=== PATIENT | male | born 1935 | race Caucasian/White ===

== ENCOUNTER 2022-04-30 08:30 | Outpatient (CLI) | payer MEDICARE, SELFPAY ==
[2022-04-30 14:07] LABS: Albumin* 4.8 g/dL (3.3-5.0)
[2022-04-30 14:08] LABS: Chloride* 102 mmol/L (96-114); Sodium* 140 mmol/L (135-149)
[2022-04-30 14:10] LABS: Aspartate Amino Transferase* 25 U/L (12-35); Bilirubin Total* 0.7 mg/dL (0.1-1.5); Carbon Dioxide* 25 mmol/L (20-32); Cholesterol* 120 mg/dL (90-199); Creatinine* 1.5 mg/dL (0.5-1.5); Estimated Glomerular Filt Rate 46 ml/min; Total Protein* 7.3 g/dL (6.0-8.3)
[2022-04-30 14:11] LABS: Alanine Aminotransferase* 19 U/L (4-50); Alkaline Phosphatase* 108 U/L (40-150); Blood Urea Nitrogen* 27 mg/dL (7-30); Calcium* 9.4 mg/dL (8.4-10.6); Glucose* 86 mg/dL (60-115); HDL Cholesterol* 35 mg/dL (>=40); LDL Cholesterol Calculated 64 mg/dL (<100); Triglycerides* 107 mg/dL (40-149)
[2022-04-30 14:26] LABS: Creatinine Urine 58.4 mg/dL
[2022-04-30 14:30] LABS: Microalbumin Creatinine Ratio 220 mg/g (0-30); Microalbumin Urine 13 mg/dL
[2022-04-30 14:46] LABS: Vitamin B12* 466 pg/mL (243-894)
== END 2022-04-30 08:31 | disposition home or self-care (01) ==
PROVIDERS: PCP Family Medicine; Visit Provider Family Medicine
DX: E11.9 Type 2 diabetes mellitus without complications (principal); E78.5 Hyperlipidemia, unspecified; I10 Essential (primary) hypertension; I25.10 Atherosclerotic heart disease of native coronary artery without angina pectoris
CPT/HCPCS: 80053; 80061; 82043; 82570; 82607

== ENCOUNTER 2022-11-30 08:51 | Outpatient (CLI) | payer MEDICARE, SELFPAY | END 2022-11-30 08:52 | disposition home or self-care (01) | PROVIDERS: PCP Family Medicine; Visit Provider Family Medicine | DX: N18.1 Chronic kidney disease, stage 1 (principal); D64.9 Anemia, unspecified; E11.9 Type 2 diabetes mellitus without complications; E78.5 Hyperlipidemia, unspecified; I10 Essential (primary) hypertension | CPT/HCPCS: 80053; 80061; 82043; 82306; 82310; 82570; 82607; 82728; 83540; 83550; 83970; 84550; 87086; 87186 ==

== ENCOUNTER 2023-07-06 20:00 | Outpatient (CLI) | payer MEDICARE, SELFPAY | END 2023-07-06 20:01 | disposition home or self-care (01) | LOC: AMB 07-09 16:11 | PROVIDERS: PCP Family Medicine; Visit Provider Emergency Medicine | DX: E11.65 Type 2 diabetes mellitus with hyperglycemia (principal); R11.2 Nausea with vomiting, unspecified | CPT/HCPCS: A0425; A0427 ==

== ENCOUNTER 2023-07-06 20:44 | Emergency (ER) | payer MEDICARE, SELFPAY ==
[2023-07-06] VITALS (18 sets, daily range): BP systolic 114–150; BP diastolic 59–73; PULSE 76–99; RESP 18; TEMP 37; O2SAT 97–100; BMI 21.8
[2023-07-06] MEDS: 0.9 % SODIUM CHLORIDE 1000 ml 1,000 ML IV (21:05)
[2023-07-06 21:19] LABS: HCO3 VBG 23 mmol/L (21-28); Lactate* 1.2 mmol/L (0.5-1.9); PCO2 VBG 37 mmHG (40-50); PO2 VBG 37.8 mmHG (25-47); pH VBG 7.403 (7.32-7.43)
[2023-07-06 21:22] LABS: Basophils Absolute Auto 0.01 K/uL (0.00-0.30); Basophils Percent Auto 0.1 % (0.0-3.0); Eosinophils Absolute Auto 0.01 K/uL (0.00-0.50); Eosinophils Percent Auto 0.1 % (0.0-7.0); Hematocrit 32.2 % (37.0-53.0); Hemoglobin* 11.3 gm/dL (13.5-17.5); Immature Granulocytes Abs Auto 0.02 K/uL (0.00-0.30); Immature Granulocytes Pct Auto 0.2 %; Lymphocytes Percent Auto 4.3 % (20-44); Mean Corpuscular HGB Conc 35 gm/dL (32-36); Mean Corpuscular Hemoglobin 30 pg (26-34); Mean Corpuscular Volume 86 fL (80-100); Monocytes Percent Auto 12.8 % (0.0-11.0); Neutrophils Percent Auto 82.5 % (42.0-72.0); Platelet Count* 164 K/uL (140-440); RDW Coefficient of Variation % 11.4 % (11.5-15.5); Red Blood Count 3.74 m/uL (4.30-5.90); White Blood Count* 8.22 K/uL (4.50-11.00)
[2023-07-06 21:28] LABS: Slide Review Reflex No
[2023-07-06 21:33] LABS: Chloride* 101 mmol/L (96-114); Sodium* 133 mmol/L (135-149)
[2023-07-06 21:36] LABS: Anion Gap 10 mEq/L (7-15); Blood Urea Nitrogen* 40 mg/dL (7-30); Carbon Dioxide* 22 mmol/L (20-32); Creatinine* 1.5 mg/dL (0.5-1.5); Est. Creatinine Clearance* 34.47; Estimated Glomerular Filt Rate 45 ml/min
[2023-07-06 21:37] LABS: Glucose* 290 mg/dL (60-115)
[2023-07-06 21:57] LABS: Appearance Urine Clear (Clear); Bilirubin Urine Negative (Negative); Blood Urine Trace-lysed (Negative); Color Urine Yellow (Yellow); Glucose Urine 2+ (Negative); Ketones Urine Negative (Negative); Leukocyte Esterase Urine Negative (Negative); Nitrite Urine Negative (Negative); Protein Urine 2+ (Negative); Specific Gravity Urine 1.015 (1.000-1.030); Urobilinogen Urine 0.2 (0.2-1.0); pH Urine 5.5 (5.0-8.5)
[2023-07-06 22:05] LABS: RBC Urine 0-2 (0-2); Squamous Epithelial Cell Urine Few (None-Few)
[2023-07-06 22:13] LABS: Glucose, Point-of-Care* 214 mg/dl (60-115)
--- NOTE | 2023-07-06 22:57 | ED.NURSE ---
pt given water and crackers per MD order.
[2023-07-07] VITALS: PULSE 75; O2SAT 98
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
--- NOTE | 2023-07-07 12:32 | ED.NURSE ---
Pt's daughter called x3 regarding missing watch from Pt. Daughter called to notify staff Pt's watch was found in pant pocket.
== END 2023-07-07 00:05 | disposition home or self-care (01) ==
PROVIDERS: Emergency Provider Emergency Medicine; PCP Family Medicine
DX: E11.65 Type 2 diabetes mellitus with hyperglycemia (principal)
CPT/HCPCS: 36415; 80048; 81001; 82010; 82803; 82947; 82962; 83605; 85025; 93005; 96360; 96361; 99283; 99284; J7030

== ENCOUNTER 2023-08-02 19:04 | Inpatient (IN) | payer MEDICARE, SELFPAY ==
[2023-08-02] VITALS (22 sets, daily range): BP systolic 123–151; BP diastolic 59–71; PULSE 87–117; RESP 20; TEMP 36.8–37.8; O2SAT 95–100; BMI 22.4; BMI 19.5
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
--- NOTE | 2023-08-02 19:24 | CRLHL7_ITS ---
For Patients: As a result of the Cures Act, medical imaging exams and procedure reports are released immediately into your electronic medical record. You may view this report before your referring provider. If you have questions, please contact your health care provider. INDICATION: Fever, feels unwell TECHNIQUE: Chest 1 view. Permanently recorded images are archived. COMPARISON: None. FINDINGS: Cardiovascular and mediastinum: Heart size and vasculature are normal in caliber and appearance. Lungs and pleural spaces: The lungs are clear. No pleural effusion or pneumothorax. Bones and soft tissues: Unremarkable for age. IMPRESSION: No evidence of an acute pulmonary process. Dictated by Carson Stewart MD @ 08/02/2023 9:05:14 PM (Electronically Signed)
[2023-08-02] MEDS: 0.9 % SODIUM CHLORIDE 500 ML 500 ML IV (20:00)
--- NOTE | 2023-08-02 20:00 | ED.NURSE ---
magazine writer flushed pt EMS IV while getting the pt settled from EMS. magazine writer then started to administer order IV fluids. once fluids started, before magazine writer exited the room pt mentioned that the IV felt weird. daughter check pt arm before magazine writer to get there and noticed some swelling. upon investigation the EMS IV had infiltrated. magazine writer removed EMS IV and wrapped sight with Coban.
[2023-08-02 20:04] LABS: HCO3 VBG 24 mmol/L (21-28); Lactate* 1.8 mmol/L (0.5-1.9); PCO2 VBG 38 mmHG (40-50); PO2 VBG 30.9 mmHG (25-47); pH VBG 7.406 (7.32-7.43)
[2023-08-02 20:20] LABS: Chloride* 99 mmol/L (96-114)
[2023-08-02 20:21] LABS: Potassium* 4.4 mmol/L (3.6-5.1); Sodium* 131 mmol/L (135-149)
[2023-08-02 20:23] LABS: Basophils Percent Auto 0.1 % (0.0-3.0); Creatinine* 1.5 mg/dL (0.5-1.5); Eosinophils Percent Auto 0.1 % (0.0-7.0); Est. Creatinine Clearance* 34.47; Estimated Glomerular Filt Rate 45 ml/min; Hematocrit 21.1 % (37.0-53.0); Immature Granulocytes Pct Auto 0.4 %; Lymphocytes Percent Auto 3.3 % (20-44); Mean Corpuscular HGB Conc 34 gm/dL (32-36); Mean Corpuscular Hemoglobin 30 pg (26-34); Mean Corpuscular Volume 88 fL (80-100); Monocytes Percent Auto 7.3 % (0.0-11.0); Neutrophils Percent Auto 88.8 % (42.0-72.0); Platelet Count* 332 K/uL (140-440); RDW Coefficient of Variation % 11.7 % (11.5-15.5); Red Blood Count 2.41 m/uL (4.30-5.90); White Blood Count* 17.23 K/uL (4.50-11.00)
[2023-08-02 20:24] LABS: Alanine Aminotransferase* 100 U/L (4-50); Alkaline Phosphatase* 140 U/L (40-150); Anion Gap 12 mEq/L (7-15); Aspartate Amino Transferase* 63 U/L (12-35); Bilirubin Total* 0.7 mg/dL (0.1-1.5); Blood Urea Nitrogen* 51 mg/dL (7-30); Calcium* 9.2 mg/dL (8.4-10.6); Carbon Dioxide* 20 mmol/L (20-32); Glucose* 330 mg/dL (60-115); Total Protein* 7.3 g/dL (6.0-8.3)
[2023-08-02 20:25] LABS: Hemoglobin* 7.1 gm/dL (13.5-17.5); Slide Review Reflex No
--- NOTE | 2023-08-02 20:31 | CRLHL7_ITS ---
For Patients: As a result of the 21st Century Cures Act, medical imaging exams and procedure reports are released immediately into your electronic medical record. You may view this report before your referring provider. If you have questions, please contact your health care provider. INDICATION: New anemia, fever, ill. TECHNIQUE: CT chest, abdomen, and pelvis acquired with 75 cc Isovue 370 IV contrast. COMPARISON: None. FINDINGS: CHEST: Lungs and pleura: Lungs and pleural spaces are clear. No suspicious nodules, infiltrates, or effusions. Cardiovascular structures: Heart size is normal. Thoracic aorta and main pulmonary artery are normal in caliber. Coronary artery calcifications. Mediastinum and sonny: No mass or adenopathy. Chest wall and axilla: No mass or adenopathy. Bones: Degenerative changes. ABDOMEN AND PELVIS: Liver: Normal in size and attenuation. Subcentimeter hypodense focus in the right hepatic lobe is too small to accurately characterize. Gallbladder and bile ducts: Mildly prominent bile ducts, likely secondary to post cholecystectomy state. Trace pneumobilia. Spleen: Unremarkable. Adrenal glands: Unremarkable. Pancreas: Atrophy of the pancreas. 1.5 cm low density lesion in the pancreatic neck appears contiguous with the pancreatic duct, may represent a side branch IPMN. Kidneys: Left renal scarring. 1.7 cm indeterminate lesion in the left lower pole (series 2, image 155). No hydronephrosis. GI tract: Small hiatal hernia. Moderate to large colonic stool load. No evidence of obstruction. Lymph nodes: Unremarkable. Vascular structures: Scattered atherosclerotic calcifications. Miscellaneous: Unremarkable. No free air or significant free fluid. Pelvic organs: Severe prostatomegaly. Urinary bladder diverticula. Bones: Degenerative changes. IMPRESSION: 1. No acute abnormality of the chest, abdomen, or pelvis. 2. 1.7 cm left renal lower pole indeterminate lesion. Consider further characterization with MRI abdomen (renal mass protocol). 3. 1.5 cm low density lesion in the pancreatic neck appears contiguous with the pancreatic duct, may represent a side branch IPMN. This could be confirmed with MRCP if clinically warranted. 4. Severe prostatomegaly. Please note that all CT scans at this facility use dose modulation, iterative reconstruction, and/or weight-based dosing when appropriate to reduce radiation dose to as low as reasonably achievable. Dictated by Juanito Morales MD @ 08/02/2023 11:08:11 PM (Electronically Signed)
[2023-08-02 20:46] LABS: C Reactive Protein* 15.1 mg/dL (0.5-1.0)
[2023-08-02 21:00] LABS: PCR FLU A Negative PCR FLU A (Negative); PCR FLU B Negative PCR FLU B (Negative); PCR RSV Negative PCR RSV (Negative); SARS PCR* Negative SARS-CoV-2 (Negative)
[2023-08-02 21:26] LABS: Erythrocyte SedimentationRate* > 140 mm/hr (2-15)
[2023-08-02 21:36] LABS: Fecal Occult Blood* Negative (Negative)
[2023-08-02] MEDS: PANTOPRAZOLE SODIUM 40 MG INJ IVP (21:52)
[2023-08-02 21:56] LABS: Reticulocyte Percent 0.7 % (0.5-2.0); Reticulocytes Absolute 0.02 # (0.03-0.08)
[2023-08-02 21:58] LABS: Troponin I* 0.01 ng/mL (0.01-0.04)
[2023-08-02 22:02] LABS: Procalcitonin* 1.19 ng/mL (<0.50)
[2023-08-02 22:04] LABS: Iron* 30 ug/dL (49-181)
[2023-08-02 22:13] LABS: Percent Iron Saturation 10 % (20-50); Total Iron Binding Capacity 318 ug/dL (261-462)
[2023-08-02 22:16] LABS: Appearance Urine Clear (Clear); Bilirubin Urine Negative (Negative); Blood Urine Trace-intact (Negative); Color Urine Yellow (Yellow); Glucose Urine 2+ (Negative); Ketones Urine Negative (Negative); Leukocyte Esterase Urine Trace (Negative); Nitrite Urine Negative (Negative); Protein Urine 2+ (Negative); Specific Gravity Urine 1.015 (1.000-1.030); Urobilinogen Urine 0.2 (0.2-1.0); pH Urine 5.5 (5.0-8.5)
[2023-08-02 22:41] LABS: Ferritin* > 1000.0 ng/mL (17.9-464.0)
--- NOTE | 2023-08-02 23:08 | ED.NURSE ---
nurse to nurse report given to M/S
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
[2023-08-02 23:44] LABS: Lactate Dehydrogenase* 318 U/L (120-246)
[2023-08-03] VITALS (13 sets, daily range): BP systolic 100–125; BP diastolic 48–69; PULSE 76–92; RESP 16–18; TEMP 36.6–37.2; O2SAT 96–99; BMI 19.5
[2023-08-03] MEDS: levoFLOXacin 750 MG TABLET PO (00:35)
--- NOTE | 2023-08-03 06:24 | PC.NURSE ---
End of shift [id number]: Patient admitted to the unit at 2320 with anemia and uncontrolled blood sugars. Alert and oriented x 4, patient does show signs of confusion during conversation, has difficulty with recall and remembering what days he started feeling unwell and was unable to verbalize his insulin dosage that was recently changed. He does state he checks his blood glucose after the last meal of each day and doses his insulin depending on what the reading is, if blood glucose >500 he states he gives 5 units to himself of the new insulin and if its below 300 he gives himself 3 units. Denies any shortness of breath or chest pain, blood pressures stable. Denies any bloody stools or known active bleeding. Patient required 1 unit PBRC's, transfursion started at 0441, denies any symptoms of transfusion reaction. Continent of bladder and bowel. Ambulates with SBA.
[2023-08-03 08:46] LABS: Ionized Calcium* 1.16 mmol/L (1.11-1.30)
[2023-08-03 08:54] LABS: Basophils Percent Auto 0.1 % (0.0-3.0); Eosinophils Percent Auto 0.2 % (0.0-7.0); Hemoglobin* 9.8 gm/dL (13.5-17.5); Immature Granulocytes Pct Auto 0.3 %; Lymphocytes Percent Auto 4.9 % (20-44); Mean Corpuscular HGB Conc 34 gm/dL (32-36); Mean Corpuscular Hemoglobin 29 pg (26-34); Mean Corpuscular Volume 87 fL (80-100); Monocytes Percent Auto 7.8 % (0.0-11.0); Neutrophils Percent Auto 86.7 % (42.0-72.0); Platelet Count* 262 K/uL (140-440); RDW Coefficient of Variation % 11.7 % (11.5-15.5); Red Blood Count 3.35 m/uL (4.30-5.90); White Blood Count* 11.13 K/uL (4.50-11.00)
[2023-08-03 08:58] LABS: Slide Review Reflex No
[2023-08-03] MEDS: OMEPRAZOLE 20 MG CAPSULE DR PO ×2 (09:07→21:15)
[2023-08-03] MEDS: AMLODIPINE 10 MG TABLET PO (09:07)
[2023-08-03] MEDS: SODIUM CHLORIDE 0.9 % (FLUSH) 10 ML SYRINGE 5 ML IVF ×2 (09:08→21:15)
[2023-08-03 09:11] LABS: Chloride* 105 mmol/L (96-114); Sodium* 136 mmol/L (135-149)
[2023-08-03 09:12] LABS: Albumin* 3.5 g/dL (3.3-5.0); Chloride* 105 mmol/L (96-114)
[2023-08-03 09:13] LABS: Potassium* 3.9 mmol/L (3.6-5.1); Sodium* 136 mmol/L (135-149)
[2023-08-03 09:14] LABS: Anion Gap 12 mEq/L (7-15); Blood Urea Nitrogen* 42 mg/dL (7-30); Carbon Dioxide* 19 mmol/L (20-32); Creatinine* 1.4 mg/dL (0.5-1.5); Est. Creatinine Clearance* 33.95; Estimated Glomerular Filt Rate 49 ml/min
[2023-08-03 09:15] LABS: Creatinine* 1.4 mg/dL (0.5-1.5); Est. Creatinine Clearance* 33.95; Estimated Glomerular Filt Rate 49 ml/min; Glucose* 137 mg/dL (60-115)
[2023-08-03 09:16] LABS: Alanine Aminotransferase* 102 U/L (4-50); Alkaline Phosphatase* 123 U/L (40-150); Anion Gap 13 mEq/L (7-15); Aspartate Amino Transferase* 76 U/L (12-35); Bilirubin Direct* 0.2 mg/dL (0.0-0.5); Bilirubin Total* 0.7 mg/dL (0.1-1.5); Blood Urea Nitrogen* 42 mg/dL (7-30); Carbon Dioxide* 18 mmol/L (20-32); Gamma Glutamyl Transpeptidase* 74 U/L (8-55); Glucose* 137 mg/dL (60-115); Lipase* 40 U/L (23-300); Phosphorus* 3.6 mg/dL (2.5-4.5); Total Protein* 6.7 g/dL (6.0-8.3)
[2023-08-03 09:17] LABS: Calcium* 8.9 mg/dL (8.4-10.6)
[2023-08-03 09:27] LABS: Troponin I* 0.02 ng/mL (0.01-0.04)
[2023-08-03 09:28] LABS: INR 1.19 (0.91-1.10); Prothrombin Time 15.9 Seconds
[2023-08-03 09:32] LABS: NT Pro B Type NatriureticPept* 785 pg/mL; Procalcitonin* 1.22 ng/mL (<0.50)
[2023-08-03 09:33] LABS: C Reactive Protein* 16.1 mg/dL (0.5-1.0)
[2023-08-03 09:38] LABS: Hemoglobin A1C* 10.6 % (0-5.6)
--- NOTE | 2023-08-03 10:51 | P.ANES_ITS ---
Anesthesia Charges Start Date/Time Anesthesia Start Date: 08/03/23 Anesthesia Start Time: 10:34 Stop Date/Time Anesthesia Stop Date: 08/03/23 Anesthesia Stop Time: 10:48 Summary Extremes of Age - Over 70 or under 1: RIGHT OF [address] BUYER
--- NOTE | 2023-08-03 12:14 | PM.IMPN1 ---
Progress Note: A&P Assessment and plan (1) Prostatitis: Problem details: severe sepsis noted. on zosyn from 08/03 forward (08/02 was vanc and levofloxacin) Status: Acute (2) Iron deficiency anemia: Problem details: - Acute anemia. significant drop in 3-4 weeks (11.3 on 07/06/23 --> 7.1 on admission) -responded nicely to 1 unit packed cells: 9.8 -stool neg for blood -EGD negative -iron stores low (elevated BUN >40 since 07/06/23) -elevated ferritin from baseline of 534 (mild elevation) in 12/18. acute phase reactant? -mild bump on LDH but no obvious hemolysis -sepsis causing? slow GI bleed? Status: Acute (3) Sepsis: Problem details: seeing sepsis - sepsis with 3 SIRS criteria: HR, WBC count, RR and infection (prostatitis with gram neg bacteremia); organ dysfunction is present with BP of 100/48 (MAP 65) Status: Acute (4) Fever: Problem details: -Marked prostatomegaly on CT. -PSA >12 -gram neg rods in blood culture -elevated procalcitonin and CRP -d/c levofloxacin, vanc - zosyn renally dosed as of noon on 08/03 Status: Acute (5) Diabetes mellitus, type II: Problem details: -insulin dependent (lantus 22-28 units and meal time insulin) -blood sugars: 89 (today at 12 noon), 139, 282, 273 ... 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 may do MRI as inpatient if needed (not needed currently) vs outpatient vs no f/u if based on care goals Status: Acute Subjective Date Seen: 08/03/23 Interval history: Daily Progress Note - Hospital Medicine #: 2 CC: OVERNIGHT UPDATES FROM STAFF & MED, LAB, IMAGING UPDATES Objective: Vitals: see above Lungs: Clear. Cardiac: S1S2. Disposition/Potential discharge - Likely to return to previous living situation. Today I spent 50minutes seeing the patient, reviewing Expanse and EPIC notes/diagnostics, discussing the care plan with our care time that includes social work, PT/OT, pharmacy, RT, residential and documenting my impressions and plan in the medical record. Exam Const: Vital Signs, click to edit/add: Vital Signs - 24 hr 08/02/23 19:06 08/02/23 19:23 08/02/23 19:30 Temperature 100.0 F H Pulse Rate 106 H 104 H Pulse Rate [Pulse Oximeter] 107 H Pulse Rate [Right Pulse Oximeter] Respiratory Rate 20 Blood Pressure Blood Pressure [Le ft Arm] Blood Pressure [Ri ght Upper Arm] 151/70 H Pulse Oximetry 100 99 99 Oxygen Delivery Me thod Room Air 08/02/23 19:32 08/02/23 19:45 08/02/23 20:00 Temperature Pulse Rate 106 H 102 H 96 Pulse Rate [Pulse Oximeter] Pulse Rate [Right Pulse Oximeter] Respiratory Rate Blood Pressure 133/71 Blood Pressure [Le ft Arm] Blood Pressure [Ri ght Upper Arm] Pulse Oximetry 98 98 98 Oxygen Delivery Me thod 08/02/23 20:02 08/02/23 20:03 08/02/23 20:18 Temperature Pulse Rate 92 97 99 Pulse Rate [Pulse Oximeter] Pulse Rate [Right Pulse Oximeter] Respiratory Rate Blood Pressure 123/59 L Blood Pressure [Le ft Arm] Blood Pressure [Ri ght Upper Arm] Pulse Oximetry 98 99 99 Oxygen Delivery Me thod 08/02/23 20:30 08/02/23 20:32 08/02/23 20:49 Temperature Pulse Rate 97 87 97 Pulse Rate [Pulse Oximeter] Pulse Rate [Right Pulse Oximeter] Respiratory Rate Blood Pressure 127/64 Blood Pressure [Le ft Arm] Blood Pressure [Ri ght Upper Arm] Pulse Oximetry 98 99 97 Oxygen Delivery Me thod 08/02/23 21:00 08/02/23 21:58 08/02/23 22:00 Temperature Pulse Rate 101 H 107 H 106 H Pulse Rate [Pulse Oximeter] Pulse Rate [Right Pulse Oximeter] Respiratory Rate Blood Pressure Blood Pressure [Le ft Arm] Blood Pressure [Ri ght Upper Arm] Pulse Oximetry 98 97 98 Oxygen Delivery Me thod 08/02/23 22:05 08/02/23 22:15 08/02/23 22:30 Temperature Pulse Rate 102 H 98 98 Pulse Rate [Pulse Oximeter] Pulse Rate [Right Pulse Oximeter] Respiratory Rate Blood Pressure Blood Pressure [Le ft Arm] Blood Pressure [Ri ght Upper Arm] Pulse Oximetry 97 96 96 Oxygen Delivery Me thod 08/02/23 22:34 08/02/23 22:45 08/02/23 23:00 Temperature Pulse Rate 99 95 106 H Pulse Rate [Pulse Oximeter] Pulse Rate [Right Pulse Oximeter] Respiratory Rate Blood Pressure Blood Pressure [Le ft Arm] Blood Pressure [Ri ght Upper Arm] Pulse Oximetry 97 97 97 Oxygen Delivery Me thod 08/02/23 23:20 08/02/23 23:20 08/03/23 03:00 Temperature 98.3 F 98.8 F Pulse Rate Pulse Rate [Pulse Oximeter] Pulse Rate [Right Pulse Oximeter] 117 H 79 Respiratory Rate 20 20 18 Blood Pressure Blood Pressure [Le ft Arm] 135/65 105/62 Blood Pressure [Ri ght Upper Arm] Pulse Oximetry 95 98 97 [facility] Room [facility] Room Air 08/03/23 04:41 08/03/23 04:55 08/03/23 04:57 Temperature 98.8 F 98.9 F 98.3 F Pulse Rate 79 81 86 Pulse Rate [Pulse Oximeter] Pulse Rate [Right Pulse Oximeter] Respiratory Rate 18 16 16 Blood Pressure 105/62 110/59 L 104/58 L Blood Pressure [Le ft Arm] Blood Pressure [Ri ght Upper Arm] Pulse Oximetry 97 97 97 Oxygen Delivery Ny thod 08/03/23 05:42 08/03/23 07:10 08/03/23 07:15 Temperature 98.6 F 98.3 F 98.3 F Pulse Rate 85 80 Pulse Rate [Pulse Oximeter] Pulse Rate [Right Pulse Oximeter] 80 Respiratory Rate 16 16 16 Blood Pressure 115/61 105/56 L Blood Pressure [Le ft Arm] 105/62 Blood Pressure [Ri ght Upper Arm] Pulse Oximetry 97 97 97 Oxygen Delivery Me od Room Air 08/03/23 08:00 08/03/23 09:58 08/03/23 11:35 Temperature 98.0 F Pulse Rate 86 Pulse Rate [Pulse Oximeter] Pulse Rate [Right Pulse Oximeter] 80 76 Respiratory Rate 16 16 Blood Pressure Blood Pressure [Le ft Arm] 100/48 L Blood Pressure [Ri ght Upper Arm] Pulse Oximetry 99 [facility] Labs Labs: Laboratory Results - last 24 hr 08/02/23 08/02/23 08/02/23 19:52 20:17 20:30 WBC 17.23 H RBC 2.41 L Hgb 7.1 L* Hct 21.1 L MCV 88 MCH 30 MCHC 34 RDW Coeff of Sy 11.7 Plt Count 332 Neut % (Auto) 88.8 H Lymph % (Auto) 3.3 L [place] % (Auto) 7.3 Eos % (Auto) 0.1 Baso % (Auto) 0.1 Neut # (Auto) 15.30 H Lymph # (Auto) 0.60 L [place] # (Auto) 1.30 H Eos # (Auto) 0.00 Baso # (Auto) 0.00 Abs Immat Gran (auto) 0.10 Imm/Tot Granulo (auto) 0.4 ESR > 140 H Absolute Retic 0.02 L Percent Retic 0.7 Immature Retic Fraction 7.0 Retic Hgb Equivalent 25.0 L INR VBG pH 7.406 VBG pCO2 38 L VBG pO2 30.9 VBG HCO3 24 Sodium 131 L Potassium 4.4 Chloride 99 Carbon Dioxide 20 Anion Gap 12 BUN 51 H Creatinine 1.5 Estimated Creat Clear 34.47 Estimated GFR 45 Glucose 330 H Hemoglobin A1c 10.6 H Lactate 1.8 Calcium 9.2 Ionized Calcium Ian Phosphorus Iron 30 L TIBC 318 % Saturation 10 L Ferritin > 1000.0 H Total Bilirubin 0.7 Direct Bilirubin GGT AST 63 H ALT 100 H Alkaline Phosphatase 140 Lactate Dehydrogenase 318 H Troponin I 0.01 C-Reactive Protein 15.1 H NT-Pro-B Natriuret Pep Total Protein 7.3 Albumin 4.0 Lipase PSA Screen 12.10 H Procalcitonin 1.19 H TSH Urine Color Urine Appearance Urine pH Ur Specific [place] Urine Protein Urine Glucose (UA) Urine Ketones Urine Blood Urine Nitrite Urine Bilirubin Urine Urobilinogen Ur Leukocyte Esterase Urine RBC Urine WBC Ur Squamous Epith Cells Urine Bacteria Stool Occult Blood SARS-CoV-2 (PCR) Negative SARS-CoV-2 Influenza Type A (PCR) Negative PCR FLU A Influenza Type B (PCR) Negative PCR FLU B RSV (PCR) Negative PCR RSV Lab Acknowledgement Test Added Blood Type Antibody Screen Crossmatch ([facility]) 08/02/23 08/02/23 08/02/23 20:49 21:21 21:46 WBC RBC Hgb Hct MCV MCH MCHC RDW Coeff of Sy Plt Count Neut % (Auto) Lymph % (Auto) [place] % (Auto) Eos % (Auto) Baso % (Auto) Neut # (Auto) Lymph # (Auto) [place] # (Auto) Eos # (Auto) Baso # (Auto) Abs Immat Gran (auto) Imm/Tot Granulo (auto) ESR Absolute Retic Percent Retic Immature Retic Fraction Retic Hgb Equivalent INR VBG pH VBG pCO2 VBG pO2 VBG HCO3 Sodium Potassium Chloride Carbon Dioxide Anion Gap BUN Creatinine Estimated Creat Clear Estimated GFR Glucose Hemoglobin A1c Lactate Calcium Ionized Calcium Ian Phosphorus Iron TIBC % Saturation Ferritin Total Bilirubin Direct Bilirubin GGT AST ALT Alkaline Phosphatase Lactate Dehydrogenase Troponin I C-Reactive Protein NT-Pro-B Natriuret Pep Total Protein Albumin Lipase PSA Screen Procalcitonin TSH Urine Color Yellow Urine Appearance Clear Urine pH 5.5 Ur Specific [place] 1.015 Urine Protein 2+ A Urine Glucose (UA) 2+ A Urine Ketones Negative Urine Blood Trace-intact A Urine Nitrite Negative Urine Bilirubin Negative Urine Urobilinogen 0.2 Ur Leukocyte Esterase Trace A Urine RBC 2-5 A Urine WBC 2-5 Ur Squamous Epith Cells None Urine Bacteria None Stool Occult Blood Negative SARS-CoV-2 (PCR) Influenza Type A (PCR) Influenza Type B (PCR) RSV (PCR) Lab Acknowledgement Blood Type A Positive Antibody Screen NEGATIVE Crossmatch ([facility]) See Detail 08/02/23 08/03/23 08/03/23 22:48 08:20 08:40 WBC 11.13 H RBC 3.35 L Hgb 9.8 L Hct 29.0 L MCV 87 MCH 29 MCHC 34 RDW Coeff of Sy 11.7 Plt Count 262 Neut % (Auto) 86.7 H Lymph % (Auto) 4.9 L [place] % (Auto) 7.8 Eos % (Auto) 0.2 Baso % (Auto) 0.1 Neut # (Auto) 9.60 H Lymph # (Auto) 0.50 L [place] # (Auto) 0.90 Eos # (Auto) 0.00 Baso # (Auto) 0.00 Abs Immat Gran (auto) 0.00 Imm/Tot Granulo (auto) 0.3 ESR Absolute Retic Percent Retic Immature Retic Fraction Retic Hgb Equivalent INR 1.19 H VBG pH VBG pCO2 VBG pO2 VBG HCO3 Sodium 136 Potassium Chloride Carbon Dioxide Anion Gap BUN Creatinine Estimated Creat Clear Estimated GFR Glucose Hemoglobin A1c Lactate Calcium Ionized Calcium Ian Phosphorus Iron TIBC % Saturation Ferritin Total Bilirubin Direct Bilirubin GGT AST ALT Alkaline Phosphatase Lactate Dehydrogenase Troponin I C-Reactive Protein NT-Pro-B Natriuret Pep Total Protein Albumin Lipase PSA Screen Procalcitonin TSH Urine Color Urine Appearance Urine pH Ur Specific [place] Urine Protein Urine Glucose (UA) Urine Ketones Urine Blood Urine Nitrite Urine Bilirubin Urine Urobilinogen Ur Leukocyte Esterase Urine RBC Urine WBC Ur Squamous Epith Cells Urine Bacteria Stool Occult Blood SARS-CoV-2 (PCR) Influenza Type A (PCR) Influenza Type B (PCR) RSV (PCR) Lab Acknowledgement Test Added Test Added Blood Type Antibody Screen Crossmatch ([facility]) 08/03/23 08/03/23 08/03/23 08:40 08:40 08:40 WBC RBC Hgb Hct MCV MCH MCHC RDW Coeff of Sy Plt Count Neut % (Auto) Lymph % (Auto) [place] % (Auto) Eos % (Auto) Baso % (Auto) Neut # (Auto) Lymph # (Auto) [place] # (Auto) Eos # (Auto) Baso # (Auto) Abs Immat Gran (auto) Imm/Tot Granulo (auto) ESR Absolute Retic Percent Retic Immature Retic Fraction Retic Hgb Equivalent INR VBG pH VBG pCO2 VBG pO2 VBG HCO3 Sodium 136 Potassium 4.0 3.9 Chloride 105 105 Carbon Dioxide 19 L Anion Gap BUN Creatinine Estimated Creat Clear Estimated GFR Glucose Hemoglobin A1c Lactate Calcium Ionized Calcium Ian Phosphorus Iron TIBC % Saturation Ferritin Total Bilirubin Direct Bilirubin GGT AST ALT Alkaline Phosphatase Lactate Dehydrogenase Troponin I C-Reactive Protein NT-Pro-B Natriuret Pep Total Protein Albumin Lipase PSA Screen Procalcitonin TSH Urine Color Urine Appearance Urine pH Ur Specific [place] Urine Protein Urine Glucose (UA) Urine Ketones Urine Blood Urine Nitrite Urine Bilirubin Urine Urobilinogen Ur Leukocyte Esterase Urine RBC Urine WBC Ur Squamous Epith Cells Urine Bacteria Stool Occult Blood SARS-CoV-2 (PCR) Influenza Type A (PCR) Influenza Type B (PCR) RSV (PCR) Lab Acknowledgement Blood Type Antibody Screen Crossmatch ([facility]) 08/03/23 08/03/23 08/03/23 08:40 08:40 08:40 WBC RBC Hgb Hct MCV MCH MCHC RDW Coeff of Sy Plt Count Neut % (Auto) Lymph % (Auto) [place] % (Auto) Eos % (Auto) Baso % (Auto) Neut # (Auto) Lymph # (Auto) [place] # (Auto) Eos # (Auto) Baso # (Auto) Abs Immat Gran (auto) Imm/Tot Granulo (auto) ESR Absolute Retic Percent Retic Immature Retic Fraction Retic Hgb Equivalent INR VBG pH VBG pCO2 VBG pO2 VBG HCO3 Sodium Potassium Chloride Carbon Dioxide 18 L Anion Gap 12 13 BUN 42 H 42 H Creatinine 1.4 Estimated Creat Clear Estimated GFR Glucose Hemoglobin A1c Lactate Calcium Ionized Calcium Ian Phosphorus Iron TIBC % Saturation Ferritin Total Bilirubin Direct Bilirubin GGT AST ALT Alkaline Phosphatase Lactate Dehydrogenase Troponin I C-Reactive Protein NT-Pro-B Natriuret Pep Total Protein Albumin Lipase PSA Screen Procalcitonin TSH Urine Color Urine Appearance Urine pH Ur Specific [place] Urine Protein Urine Glucose (UA) Urine Ketones Urine Blood Urine Nitrite Urine Bilirubin Urine Urobilinogen Ur Leukocyte Esterase Urine RBC Urine WBC Ur Squamous Epith Cells Urine Bacteria Stool Occult Blood SARS-CoV-2 (PCR) Influenza Type A (PCR) Influenza Type B (PCR) RSV (PCR) Lab Acknowledgement Blood Type Antibody Screen Crossmatch ([facility]) 08/03/23 08/03/23 08/03/23 08:40 08:40 08:40 WBC RBC Hgb Hct MCV MCH MCHC RDW Coeff of Sy Plt Count Neut % (Auto) Lymph % (Auto) [place] % (Auto) Eos % (Auto) Baso % (Auto) Neut # (Auto) Lymph # (Auto) [place] # (Auto) Eos # (Auto) Baso # (Auto) Abs Immat Gran (auto) Imm/Tot Granulo (auto) ESR Absolute Retic Percent Retic Immature Retic Fraction Retic Hgb Equivalent INR VBG pH VBG pCO2 VBG pO2 VBG HCO3 Sodium Potassium Chloride Carbon Dioxide Anion Gap BUN Creatinine 1.4 Estimated Creat Clear 33.95 33.95 Estimated GFR 49 49 Glucose 137 H Hemoglobin A1c Lactate Calcium Ionized Calcium Ian Phosphorus Iron TIBC % Saturation Ferritin Total Bilirubin Direct Bilirubin GGT AST ALT Alkaline Phosphatase Lactate Dehydrogenase Troponin I C-Reactive Protein NT-Pro-B Natriuret Pep Total Protein Albumin Lipase PSA Screen Procalcitonin TSH Urine Color Urine Appearance Urine pH Ur Specific [place] Urine Protein Urine Glucose (UA) Urine Ketones Urine Blood Urine Nitrite Urine Bilirubin Urine Urobilinogen Ur Leukocyte Esterase Urine RBC Urine WBC Ur Squamous Epith Cells Urine Bacteria Stool Occult Blood SARS-CoV-2 (PCR) Influenza Type A (PCR) Influenza Type B (PCR) RSV (PCR) Lab Acknowledgement Blood Type Antibody Screen Crossmatch ([facility]) 08/03/23 08/03/23 08:40 08:40 WBC RBC Hgb Hct MCV MCH MCHC RDW Coeff of Sy Plt Count Neut % (Auto) Lymph % (Auto) [place] % (Auto) Eos % (Auto) Baso % (Auto) Neut # (Auto) Lymph # (Auto) [place] # (Auto) Eos # (Auto) Baso # (Auto) Abs Immat Gran (auto) Imm/Tot Granulo (auto) ESR Absolute Retic Percent Retic Immature Retic Fraction Retic Hgb Equivalent INR VBG pH VBG pCO2 VBG pO2 VBG HCO3 Sodium Potassium Chloride Carbon Dioxide Anion Gap BUN Creatinine Estimated Creat Clear Estimated GFR Glucose 137 H Hemoglobin A1c Lactate Calcium 9.0 8.9 Ionized Calcium Ian 1.16 Phosphorus 3.6 Iron TIBC % Saturation Ferritin Total Bilirubin 0.7 Direct Bilirubin 0.2 GGT 74 H AST 76 H ALT 102 H Alkaline Phosphatase 123 Lactate Dehydrogenase Troponin I 0.02 C-Reactive Protein 16.1 H NT-Pro-B Natriuret Pep 785 Total Protein 6.7 Albumin 3.5 Lipase 40 PSA Screen Procalcitonin 1.22 H TSH 1.050 Urine Color Urine Appearance Urine pH Ur Specific [place] Urine Protein Urine Glucose (UA) Urine Ketones Urine Blood Urine Nitrite Urine Bilirubin Urine Urobilinogen Ur Leukocyte Esterase Urine RBC Urine WBC Ur Squamous Epith Cells Urine Bacteria Stool Occult Blood SARS-CoV-2 (PCR) Influenza Type A (PCR) Influenza Type B (PCR) RSV (PCR) Lab Acknowledgement Blood Type Antibody Screen Crossmatch ([facility])
--- NOTE | 2023-08-03 12:17 | REH.OT ---
OT: Order received, chart reviewed, have attempted x2 with patient out of room for procedure in am. Will reschedule eval.
[2023-08-03] MEDS: PIPERACILLIN/TAZOBACTAM 2.25 GM in 0.9 % SODIUM CHLORIDE Mini-bag 100 ML IVPB ×2 (12:28→17:55)
[2023-08-03 12:46] LABS: Lactate Dehydrogenase* 318 U/L (120-246)
--- NOTE | 2023-08-03 14:56 | PC.NURSE ---
End of shift. pt has been very pleasant. no pain. he is alert x 4 he is [place] and family brought in batteries for hearing aids. BS done no insulin given 1 brown stool guaiac was done. . Denies any bloody stools or known active bleeding. he is up with SBA and a cane. he went to scopes. he is eating, drinking and voiding.
[2023-08-03 15:06] LABS: Fecal Occult Blood* Negative (Negative)
[2023-08-03] MEDS: ATORVASTATIN CALCIUM 40 MG TABLET PO (17:55)
[2023-08-03] MEDS: INSULIN ASPART 100 UNIT/ML SUBCUT ×2 (17:56→21:26)
--- NOTE | 2023-08-03 22:34 | PC.NURSE ---
Shift note ([id number]): The pt has been pleasant and cooperative; His hearing aid is well charged now; he is able to hear a lot better. No BM this shift. No Fever. Denied chest pain and short of breath. Spo2 has been in the 90s in RA. up to the BR Independently. The pt appeared forgetful this evening but alert and oriented to self, place, time and situation. .
[2023-08-04] VITALS (10 sets, daily range): BP systolic 109–128; BP diastolic 55–69; PULSE 78–104; RESP 16–18; TEMP 36.6–37.3; O2SAT 97–100
[2023-08-04] MEDS: PIPERACILLIN/TAZOBACTAM 2.25 GM in 0.9 % SODIUM CHLORIDE Mini-bag 100 ML IVPB ×5 (00:24→23:36)
[2023-08-04 06:26] LABS: HCO3 VBG 21 mmol/L (21-28); PCO2 VBG 30 mmHG (40-50); PO2 VBG 49.1 mmHG (25-47); pH VBG 7.441 (7.32-7.43)
[2023-08-04 06:27] LABS: Basophils Absolute Auto 0.01 K/uL (0.00-0.30); Basophils Percent Auto 0.1 % (0.0-3.0); Eosinophils Absolute Auto 0.08 K/uL (0.00-0.50); Eosinophils Percent Auto 0.9 % (0.0-7.0); Hematocrit 28.1 % (37.0-53.0); Hemoglobin* 9.5 gm/dL (13.5-17.5); Immature Granulocytes Abs Auto 0.07 K/uL (0.00-0.30); Immature Granulocytes Pct Auto 0.8 %; Lymphocytes Percent Auto 6.7 % (20-44); Mean Corpuscular HGB Conc 34 gm/dL (32-36); Mean Corpuscular Hemoglobin 29 pg (26-34); Mean Corpuscular Volume 86 fL (80-100); Monocytes Percent Auto 8.9 % (0.0-11.0); Neutrophils Percent Auto 82.6 % (42.0-72.0); Platelet Count* 266 K/uL (140-440); Red Blood Count 3.27 m/uL (4.30-5.90); White Blood Count* 9.02 K/uL (4.50-11.00)
[2023-08-04 06:34] LABS: Slide Review Reflex No
--- NOTE | 2023-08-04 06:43 | PC.NURSE ---
End of shift nursing note, [id number]: Pt alert and oriented appropriately to typewriter mechanic's questions, WICHITA. Up w/ SBA in room. Voiding. IV patent to L forearm, IV abx admin. Vitals stable, on RA. Pt denies pain. Call light within reach and pt used appropriately this shift, slept well in between cares.
[2023-08-04 06:59] LABS: Chloride* 106 mmol/L (96-114)
[2023-08-04 07:00] LABS: Potassium* 3.8 mmol/L (3.6-5.1); Sodium* 134 mmol/L (135-149)
[2023-08-04 07:02] LABS: Alkaline Phosphatase* 123 U/L (40-150); Anion Gap 10 mEq/L (7-15); Aspartate Amino Transferase* 58 U/L (12-35); Bilirubin Total* 0.7 mg/dL (0.1-1.5); Carbon Dioxide* 18 mmol/L (20-32); Creatinine* 1.4 mg/dL (0.5-1.5); Est. Creatinine Clearance* 34.04; Estimated Glomerular Filt Rate 49 ml/min; Gamma Glutamyl Transpeptidase* 68 U/L (8-55); Total Protein* 6.1 g/dL (6.0-8.3)
[2023-08-04 07:03] LABS: Alanine Aminotransferase* 90 U/L (4-50); Blood Urea Nitrogen* 41 mg/dL (7-30); Calcium* 8.6 mg/dL (8.4-10.6); Glucose* 181 mg/dL (60-115)
[2023-08-04 07:14] LABS: Troponin I* 0.02 ng/mL (0.01-0.04)
[2023-08-04 07:19] LABS: Procalcitonin* 0.91 ng/mL (<0.50)
[2023-08-04 07:22] LABS: C Reactive Protein* 12.9 mg/dL (0.5-1.0)
[2023-08-04] MEDS: OMEPRAZOLE 20 MG CAPSULE DR PO ×2 (09:10→20:43)
[2023-08-04] MEDS: AMLODIPINE 10 MG TABLET PO (09:10)
[2023-08-04] MEDS: SODIUM CHLORIDE 0.9 % (FLUSH) 10 ML SYRINGE 5 ML IVF ×2 (09:11→20:43)
[2023-08-04] MEDS: INSULIN ASPART 100 UNIT/ML SUBCUT ×3 (11:36→20:43)
--- NOTE | 2023-08-04 13:36 | P.IMPN_ITS ---
Progress Note: A&P Assessment and plan (1) Prostatitis: Problem details: severe sepsis noted. on zosyn from 08/03 forward (08/02 was vanc and levofloxacin) -blood cultures positive with Gram-negative rods, awaiting ID and sensitivities Status: Acute (2) Iron deficiency anemia: Problem details: - Acute anemia. significant drop in 3-4 weeks (11.3 on 07/06/23 --> 7.1 on admission) -responded nicely to 1 unit packed cells: 9.8 --> 9.5 -stool neg for blood -EGD negative -iron stores low (elevated BUN >40 since 07/06/23) -elevated ferritin from baseline of 534 (mild elevation) in 12/18. acute phase reactant? -mild bump on LDH but no obvious hemolysis -sepsis causing? slow GI bleed? Status: Acute (3) Sepsis: Problem details: seeing sepsis - sepsis with 3 SIRS criteria: HR, WBC count, RR and infection (prostatitis with gram neg bacteremia); organ dysfunction is present with BP of 100/48 (MAP 65) Status: Acute (4) Fever: Problem details: -Marked prostatomegaly on CT. -PSA >12 -gram neg rods in blood culture -elevated procalcitonin and CRP -d/c levofloxacin, vanc - zosyn renally dosed as of noon on 08/03 Status: Acute (5) Diabetes mellitus, type II: Problem details: -insulin dependent (lantus 22-28 units and meal time insulin) -blood sugars: 89 (today at 12 noon), 139, 282, 273 ... 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 may do MRI as inpatient if needed (not needed currently) vs outpatient vs no f/u if based on care goals Status: Acute Subjective Date Seen: 08/04/23 Interval history: Daily Progress Note - Hospital Medicine Day #: 3 CC: prostatitis, gram neg bacteremia, acute anemia OVERNIGHT UPDATES FROM STAFF & MED, LAB, IMAGING UPDATES -patient is much improved today. His color is good. He is making jokes. He is visiting with his [id number]. WBC count is now normal, 9 K. Hemoglobin is stable at 9.5. Platelets are normal. Sodium is down a little bit 134 Bicarb is 18 Creatinine is holding at 1.4 A1c 10.6, blood sugars have been 89-278 Ferritin is markedly elevated, 2900 GGT AST and ALT are out down trending, reactive transaminitis CRP is down trending 16-12 Procalcitonin is down trending 1.2 2.9 Stool occult blood negative x2 Pending: Haptoglobin and transferrin levels One set aerobic and anaerobic bottle positive for Gram-negative rods. The other is negative to date. Urine culture is showing nonspecific Gram-positive. Objective: Vitals: All improved see above Lungs: Clear. Cardiac: S1S2. Disposition/Potential discharge - Likely to return to previous living situation. Today I spent 50minutes seeing the patient, reviewing Expanse and EPIC notes/diagnostics, discussing the care plan with our care time that includes social work, PT/OT, pharmacy, RT, long term and documenting my impressions and plan in the medical record. Exam Const: Vital Signs, click to edit/add: Vital Signs - 24 hr 08/03/23 15:45 08/03/23 15:45 08/03/23 15:45 Temperature 97.8 F Pulse Rate 79 Pulse Rate [Right Pulse Oximeter] 92 92 Respiratory Rate 16 16 Blood Pressure [Le ft Arm] 125/64 Blood Pressure [Ri ght Arm] Pulse Oximetry 98 Oxygen Delivery Me thod Room Air 08/03/23 19:15 08/04/23 00:15 08/04/23 01:09 Temperature 98.5 F 98.9 F Pulse Rate 80 Pulse Rate [Right Pulse Oximeter] 83 90 Respiratory Rate 16 16 Blood Pressure [Le ft Arm] 115/62 109/69 Blood Pressure [Ri ght Arm] Pulse Oximetry 96 97 Oxygen Delivery Me thod Room Air Room Air 08/04/23 04:45 08/04/23 07:45 08/04/23 07:45 Temperature 98.7 F Pulse Rate 104 H Pulse Rate [Right Pulse Oximeter] 84 84 Respiratory Rate 16 16 Blood Pressure [Le ft Arm] Blood Pressure [Ri ght Arm] 112/64 Pulse Oximetry 99 Oxygen Delivery Me thod Room Air 08/04/23 07:45 08/04/23 11:15 08/04/23 11:17 Temperature 98.0 F 98.1 F Pulse Rate Pulse Rate [Right Pulse Oximeter] 90 94 91 Respiratory Rate 16 16 Blood Pressure [Le ft Arm] Blood Pressure [Ri ght Arm] 127/68 126/65 Pulse Oximetry 98 98 Oxygen Delivery Me thod Room Air Room Air Room Air Labs Labs: Laboratory Results - last 24 hr 08/03/23 08/04/23 14:33 06:17 WBC 9.02 RBC 3.27 L Hgb 9.5 L Hct 28.1 L MCV 86 MCH 29 MCHC 34 RDW Coeff of Sy 12.0 Plt Count 266 Neut % (Auto) 82.6 H Lymph % (Auto) 6.7 L [place] % (Auto) 8.9 Eos % (Auto) 0.9 Baso % (Auto) 0.1 Neut # (Auto) 7.50 H Lymph # (Auto) 0.60 L [place] # (Auto) 0.80 Eos # (Auto) 0.08 Baso # (Auto) 0.01 Abs Immat Gran (auto) 0.07 Imm/Tot Granulo (auto) 0.8 VBG pH 7.441 H VBG pCO2 30 L VBG pO2 49.1 H VBG HCO3 21 Sodium 134 L Potassium 3.8 Chloride 106 Carbon Dioxide 18 L Anion Gap 10 BUN 41 H Creatinine 1.4 Estimated Creat Clear 34.04 Estimated GFR 49 Glucose 181 H Calcium 8.6 Ferritin 2910.0 H Total Bilirubin 0.7 GGT 68 H AST 58 H ALT 90 H Alkaline Phosphatase 123 Troponin I 0.02 C-Reactive Protein 12.9 H Total Protein 6.1 Albumin 3.0 L Procalcitonin 0.91 H Stool Occult Blood Negative
[2023-08-04] MEDS: ATORVASTATIN CALCIUM 40 MG TABLET PO (18:12)
[2023-08-04] MEDS: LATANOPROST 0.005% OPHTH 1 DROP EYE-BOTH (18:29)
--- NOTE | 2023-08-04 20:10 | PC.NURSE ---
End of shift. pt is still very pleasant. no pain. he is alert x 4 he is [place] , he hears better with hearing aids and batteries, BS done, was insulin given 1 brown stool that was flushes by NA and did not get a guiac. . Denies any bloody stools or known active bleeding. he is up with SBA and a cane. he is eating, drinking and voiding. PT and OT worked with him
[2023-08-05 03:23] VITALS: BP 119/61; PULSE 89; RESP 16; TEMP 37.1; O2SAT 96
[2023-08-05 03:55] LABS: Haptoglobin 527 mg/dL (30-200); Transferrin 116 mg/dL (200-360)
[2023-08-05] MEDS: PIPERACILLIN/TAZOBACTAM 2.25 GM in 0.9 % SODIUM CHLORIDE Mini-bag 100 ML IVPB (05:32)
--- NOTE | 2023-08-05 06:41 | PC.NURSE ---
End of shift [id number]: A&O pleasant and cooperative. Visiting with family at the beginning of shift. VSS. afebrile. Denies pain. SBA to bathroom.
[2023-08-05 06:50] LABS: Basophils Absolute Auto 0.01 K/uL (0.00-0.30); Basophils Percent Auto 0.1 % (0.0-3.0); Eosinophils Percent Auto 1.1 % (0.0-7.0); Hematocrit 28.7 % (37.0-53.0); Hemoglobin* 9.6 gm/dL (13.5-17.5); Immature Granulocytes Abs Auto 0.15 K/uL (0.00-0.30); Immature Granulocytes Pct Auto 1.7 %; Lymphocytes Percent Auto 7.8 % (20-44); Mean Corpuscular HGB Conc 33 gm/dL (32-36); Mean Corpuscular Hemoglobin 29 pg (26-34); Mean Corpuscular Volume 86 fL (80-100); Monocytes Percent Auto 7.2 % (0.0-11.0); Neutrophils Percent Auto 82.1 % (42.0-72.0); Platelet Count* 256 K/uL (140-440); RDW Coefficient of Variation % 12.1 % (11.5-15.5); Red Blood Count 3.34 m/uL (4.30-5.90); White Blood Count* 9.05 K/uL (4.50-11.00)
[2023-08-05 07:00] VITALS: BP 115/64; PULSE 78; PULSE 79; RESP 20; TEMP 36.7; O2SAT 98
[2023-08-05 07:04] LABS: HCO3 VBG 21 mmol/L (21-28); PCO2 VBG 32 mmHG (40-50); PO2 VBG 46.8 mmHG (25-47); pH VBG 7.425 (7.32-7.43)
[2023-08-05 07:23] LABS: Slide Review Reflex No
[2023-08-05 07:26] LABS: Chloride* 108 mmol/L (96-114)
[2023-08-05 07:27] LABS: Potassium* 3.9 mmol/L (3.6-5.1); Sodium* 136 mmol/L (135-149)
[2023-08-05 07:29] LABS: Anion Gap 11 mEq/L (7-15); Aspartate Amino Transferase* 50 U/L (12-35); Bilirubin Direct* 0.3 mg/dL (0.0-0.5); Bilirubin Total* 0.8 mg/dL (0.1-1.5); Carbon Dioxide* 17 mmol/L (20-32); Creatinine* 1.4 mg/dL (0.5-1.5); Est. Creatinine Clearance* 33.61; Estimated Glomerular Filt Rate 49 ml/min
[2023-08-05 07:30] LABS: Alanine Aminotransferase* 80 U/L (4-50); Alkaline Phosphatase* 125 U/L (40-150); Blood Urea Nitrogen* 31 mg/dL (7-30); Calcium* 8.4 mg/dL (8.4-10.6); Glucose* 206 mg/dL (60-115); Phosphorus* 3.4 mg/dL (2.5-4.5); Total Protein* 6.1 g/dL (6.0-8.3)
[2023-08-05 07:44] LABS: Procalcitonin* 0.72 ng/mL (<0.50)
[2023-08-05] MEDS: INSULIN ASPART 100 UNIT/ML SUBCUT ×4 (08:42→21:18)
[2023-08-05] MEDS: AMLODIPINE 10 MG TABLET PO (08:42)
[2023-08-05] MEDS: OMEPRAZOLE 20 MG CAPSULE DR PO ×2 (08:42→21:11)
--- NOTE | 2023-08-05 10:55 | P.IMPN_ITS ---
Progress Note: A&P Assessment and plan (1) Prostatitis: Problem details: severe sepsis noted but now resolved. on zosyn from 08/03 forward (08/02 was vanc and levofloxacin) - as of 08/05 on Rocephin 1 g Q 24 -blood cultures growing Klebsiella Status: Acute (2) Iron deficiency anemia: Problem details: - Acute anemia. significant drop in 3-4 weeks (11.3 on 07/06/23 --> 7.1 on admission) -responded nicely to 1 unit packed cells: 9.8 --> 9.5 -stool neg for blood -EGD negative -iron stores low (elevated BUN >40 since 07/06/23) -elevated ferritin from baseline of 534 (mild elevation) in 12/18. acute phase re actant? -mild bump on LDH but no obvious hemolysis -sepsis causing? slow GI bleed? If not clear during admission, patient can see Hematology and PCP as an outpatient. Status: Acute (3) Sepsis: Problem details: -resolved seeing sepsis - sepsis with 3 SIRS criteria: HR, WBC count, RR and infection (prostatitis with gram neg bacteremia); organ dysfunction is present with BP of 100/48 (MAP 65) Status: Acute (4) Fever: Problem details: -Marked prostatomegaly on CT. -PSA >12 -Klebsiella pneumonia in blood culture -elevated procalcitonin and CRP -d/c levofloxacin, vanc - zosyn renally dosed as of noon on 08/03, transition to Rocephin morning of 08/05 Status: Acute (5) Diabetes mellitus, type II: Problem details: -insulin dependent (lantus 22-28 units and meal time insulin) -blood sugars: 89 (today at 12 noon), 139, 282, 273 ... improving Status: Acute (6) Cognitive impairment: Problem details: Further evaluation here to determine ability to function independently and manage medical problems. 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 may do MRI as inpatient if needed (not needed currently) vs outpatient vs no f/u if based on care goals Status: Acute Subjective Date Seen: 08/05/23 Interval history: Daily Progress Note - Hospital Medicine Day #: 4 CC: prostatitis, gram neg bacteremia, acute anemia OVERNIGHT UPDATES FROM STAFF & MED, LAB, IMAGING UPDATES -patient is much improved today. His color is good. He is making jokes. He is visiting with his [id number]. WBC count is now normal, 9 K. Hemoglobin is stable at 9.6. Platelets are normal. Bicarb is a little low Creatinine is holding at 1.4 A1c 10.6, blood sugars have been 89-302, jumping all around Ferritin is markedly elevated likely reactive GGT AST and ALT are out down trending, reactive transaminitis CRP is down trending 16-7 Procalcitonin is down trending 1.2 down to 0.72 Stool occult blood negative x2 Klebsiella that is generally pansensitive is growing from his blood cultures. Urine culture showed normal char. No specific culture from prostatic fluid. Objective: Vitals: All improved see above Lungs: Clear. Cardiac: S1S2. Disposition/Potential discharge - Likely to return to previous living situation. Today I spent 50minutes seeing the patient, reviewing Expanse and EPIC notes/diagnostics, discussing the care plan with our care time that includes social work, PT/OT, pharmacy, RT, nursing home and documenting my impressions and plan in the medical record. Exam Const: Vital Signs, click to edit/add: Vital Signs - 24 hr 08/04/23 11:17 08/04/23 16:00 08/04/23 16:23 Temperature 98.1 F 98.4 F Pulse Rate Pulse Rate [Right Pulse Oximeter] 91 95 91 Respiratory Rate 16 18 16 Blood Pressure [Ri ght Arm] 126/65 111/55 L Pulse Oximetry 98 100 Oxygen Delivery Me thod Room Air Room Air 08/04/23 17:27 08/04/23 20:40 08/04/23 23:00 Temperature 97.9 F 99.1 F Pulse Rate 84 Pulse Rate [Right Pulse Oximeter] 98 90 Respiratory Rate 18 16 Blood Pressure [Ri ght Arm] 128/58 L 119/61 Pulse Oximetry 99 97 Oxygen Delivery Me thod Room Air Room Air 08/04/23 23:00 08/05/23 03:23 08/05/23 07:00 Temperature 98.8 F Pulse Rate 78 78 Pulse Rate [Right Pulse Oximeter] 89 Respiratory Rate 16 Blood Pressure [Ri ght Arm] 119/61 Pulse Oximetry 96 Oxygen Delivery Me thod Room Air Labs Labs: Laboratory Results - last 24 hr 08/02/23 08/05/23 20:49 06:27 WBC 9.05 RBC 3.34 L Hgb 9.6 L Hct 28.7 L MCV 86 MCH 29 MCHC 33 RDW Coeff of Sy 12.1 Plt Count 256 Neut % (Auto) 82.1 H Lymph % (Auto) 7.8 L [place] % (Auto) 7.2 Eos % (Auto) 1.1 Baso % (Auto) 0.1 Neut # (Auto) 7.40 H Lymph # (Auto) 0.70 L [place] # (Auto) 0.70 Eos # (Auto) 0.10 Baso # (Auto) 0.01 Abs Immat Gran (auto) 0.15 Imm/Tot Granulo (auto) 1.7 VBG pH 7.425 VBG pCO2 32 L VBG pO2 46.8 VBG HCO3 21 Sodium 136 Potassium 3.9 Chloride 108 Carbon Dioxide 17 L Anion Gap 11 BUN 31 H Creatinine 1.4 Estimated Creat Clear 33.61 Estimated GFR 49 Glucose 206 H Haptoglobin 527 H Calcium 8.4 Phosphorus 3.4 [id number], Serum 116 L Total Bilirubin 0.8 Direct Bilirubin 0.3 AST 50 H ALT 80 H Alkaline Phosphatase 125 C-Reactive Protein 7.0 H Total Protein 6.1 Albumin 3.0 L Procalcitonin 0.72 H
[2023-08-05 11:00] VITALS: BP 107/54; PULSE 76; RESP 20; TEMP 36.6; O2SAT 95
[2023-08-05] MEDS: cefTRIAXone 1 GM in 0.9 % SODIUM CHLORIDE Mini-bag 100 ML IVPB (11:37)
[2023-08-05] MEDS: SODIUM CHLORIDE 0.9 % (FLUSH) 10 ML SYRINGE 5 ML IVF ×2 (11:38→21:12)
--- NOTE | 2023-08-05 12:59 | W.PM.INFDCN ---
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 Ur Squamous Epith Cells (None-Few) Urine Bacteria (None) Stool Occult Blood (Negative) SARS-CoV-2 (PCR) (Negative) Influenza Type A (PCR) (Negative) Influenza Type B (PCR) (Negative) RSV (PCR) (Negative) Lab Acknowledgement Blood Type Antibody Screen Direct Antiglob Test Crossmatch (AHG) 08/03/23 08/03/23 08/03/23 Range/Units 08:40 08:40 08:40 WBC 11.13 H (4.50-11.00) K/uL RBC 3.35 L (4.30-5.90) m/uL Hgb 9.8 L (13.5-17.5) gm/dL Hct 29.0 L (37.0-53.0) % MCV 87 (80-100) fL MCH 29 (26-34) pg MCHC 34 (32-36) gm/dL RDW Coeff of Sy 11.7 (11.5-15.5) % Plt Count 262 (140-440) K/uL Neut % (Auto) 86.7 H (42.0-72.0) % Lymph % (Auto) 4.9 L (20-44) % Forrest % (Auto) 7.8 (0.0-11.0) % Eos % (Auto) 0.2 (0.0-7.0) % Baso % (Auto) 0.1 (0.0-3.0) % Neut # (Auto) 9.60 H (1.7-7.0) K/uL Lymph # (Auto) 0.50 L (0.90-2.90) K/uL Forrest # (Auto) 0.90 (0.00-0.90) K/UL Eos # (Auto) 0.00 (0.00-0.50) K/uL Baso # (Auto) 0.00 (0.00-0.30) K/uL Abs Immat Gran (auto) 0.00 (0.00-0.30) K/uL Imm/Tot Granulo (auto) 0.3 % ESR (2-15) mm/hr Absolute Retic (0.03-0.08) # Percent Retic (0.5-2.0) % Immature Retic Fraction (2.3-13.4) % Retic Hgb Equivalent (29.0-35.0) pg INR 1.19 H (0.91-1.10) VBG pH (7.32-7.43) VBG pCO2 (40-50) mmHG VBG pO2 (25-47) mmHG VBG HCO3 (21-28) mmol/L Sodium 136 136 (135-149) mmol/L Potassium 3.9 4.0 (3.6-5.1) mmol/L Chloride 105 (96-114) mmol/L Carbon Dioxide (20-32) mmol/L Anion Gap (7-15) mEq/L BUN (7-30) mg/dL Creatinine (0.5-1.5) mg/dL Estimated Creat Clear Estimated GFR ml/min Glucose (60-115) mg/dL Hemoglobin A1c (0-5.6) % Haptoglobin (30-200) mg/dL Lactate (0.5-1.9) mmol/L Calcium (8.4-10.6) mg/dL Ionized Calcium Ian (1.11-1.30) mmol/L Phosphorus (2.5-4.5) mg/dL Iron (49-181) ug/dL TIBC (261-462) ug/dL % Saturation (20-50) % Gqzl-[id number]-Amjodcovorn, Serum (200-360) mg/dL Ferritin (17.9-464.0) ng/mL Total Bilirubin (0.1-1.5) mg/dL Direct Bilirubin (0.0-0.5) mg/dL GGT (8-55) U/L AST (12-35) U/L ALT (4-50) U/L Alkaline Phosphatase (40-150) U/L Lactate Dehydrogenase (120-246) U/L Troponin I (0.01-0.04) ng/mL C-Reactive Protein (0.5-1.0) mg/dL NT-Pro-B Natriuret Pep pg/mL Total Protein (6.0-8.3) g/dL Albumin (3.3-5.0) g/dL Lipase (23-300) U/L PSA Screen (0.10-4.00) ng/mL Procalcitonin (<0.50) ng/mL TSH (0.270-4.20) uIU/mL Urine Color (Yellow) Urine Appearance (Clear) Urine pH (5.0-8.5) Ur Specific [place] (1.000-1.030) Urine Protein (Negative) Urine Glucose (UA) (Negative) Urine Ketones (Negative) Urine Blood (Negative) Urine Nitrite (Negative) Urine Bilirubin (Negative) Urine Urobilinogen (0.2-1.0) Ur Leukocyte Esterase (Negative) Urine RBC (0-2) Urine WBC (0-5) Ur Squamous Epith Cells (None-Few) Urine Bacteria (None) Stool Occult Blood (Negative) SARS-CoV-2 (PCR) (Negative) Influenza Type A (PCR) (Negative) Influenza Type B (PCR) (Negative) RSV (PCR) (Negative) Lab Acknowledgement Blood Type Antibody Screen Direct Antiglob Test Crossmatch (AHG) 08/03/23 08/02/23 08/02/23 Range/Units 08:20 22:48 21:46 WBC (4.50-11.00) K/uL RBC (4.30-5.90) m/uL Hgb (13.5-17.5) gm/dL Hct (37.0-53.0) % MCV (80-100) fL MCH (26-34) pg MCHC (32-36) gm/dL RDW Coeff of Sy (11.5-15.5) % Plt Count (140-440) K/uL Neut % (Auto) (42.0-72.0) % Lymph % (Auto) (20-44) % Forrest % (Auto) (0.0-11.0) % Eos % (Auto) (0.0-7.0) % Baso % (Auto) (0.0-3.0) % Neut # (Auto) (1.7-7.0) K/uL Lymph # (Auto) (0.90-2.90) K/uL Forrest # (Auto) (0.00-0.90) K/UL Eos # (Auto) (0.00-0.50) K/uL Baso # (Auto) (0.00-0.30) K/uL Abs Immat Gran (auto) (0.00-0.30) K/uL Imm/Tot Granulo (auto) % ESR (2-15) mm/hr Absolute Retic (0.03-0.08) # Percent Retic (0.5-2.0) % Immature Retic Fraction (2.3-13.4) % Retic Hgb Equivalent (29.0-35.0) pg INR (0.91-1.10) VBG pH (7.32-7.43) VBG pCO2 (40-50) mmHG VBG pO2 (25-47) mmHG VBG HCO3 (21-28) mmol/L Sodium (135-149) mmol/L Potassium (3.6-5.1) mmol/L Chloride (96-114) mmol/L Carbon Dioxide (20-32) mmol/L Anion Gap (7-15) mEq/L BUN (7-30) mg/dL Creatinine (0.5-1.5) mg/dL Estimated Creat Clear Estimated GFR ml/min Glucose (60-115) mg/dL Hemoglobin A1c (0-5.6) % Haptoglobin (30-200) mg/dL Lactate (0.5-1.9) mmol/L Calcium (8.4-10.6) mg/dL Ionized Calcium Ian (1.11-1.30) mmol/L Phosphorus (2.5-4.5) mg/dL Iron (49-181) ug/dL TIBC (261-462) ug/dL % Saturation (20-50) % Asji-5-Gjydoyoyvnu, Serum (200-360) mg/dL Ferritin (17.9-464.0) ng/mL Total Bilirubin (0.1-1.5) mg/dL Direct Bilirubin (0.0-0.5) mg/dL GGT (8-55) U/L AST (12-35) U/L ALT (4-50) U/L Alkaline Phosphatase (40-150) U/L Lactate Dehydrogenase (120-246) U/L Troponin I (0.01-0.04) ng/mL C-Reactive Protein (0.5-1.0) mg/dL NT-Pro-B Natriuret Pep pg/mL Total Protein (6.0-8.3) g/dL Albumin (3.3-5.0) g/dL Lipase (23-300) U/L PSA Screen (0.10-4.00) ng/mL Procalcitonin (<0.50) ng/mL TSH (0.270-4.20) uIU/mL Urine Color Yellow (Yellow) Urine Appearance Clear (Clear) Urine pH 5.5 (5.0-8.5) Ur Specific [place] 1.015 (1.000-1.030) Urine Protein 2+ A (Negative) Urine Glucose (UA) 2+ A (Negative) Urine Ketones Negative (Negative) Urine Blood Trace-intact A (Negative) Urine Nitrite Negative (Negative) Urine Bilirubin Negative (Negative) Urine Urobilinogen 0.2 (0.2-1.0) Ur Leukocyte Esterase Trace A (Negative) Urine RBC 2-5 A (0-2) Urine WBC 2-5 (0-5) Ur Squamous Epith Cells None (None-Few) Urine Bacteria None (None) Stool Occult Blood (Negative) SARS-CoV-2 (PCR) (Negative) Influenza Type A (PCR) (Negative) Influenza Type B (PCR) (Negative) RSV (PCR) (Negative) Lab Acknowledgement Test Added Test Added Blood Type Antibody Screen Direct Antiglob Test Crossmatch (AHG) 08/02/23 08/02/23 08/02/23 Range/Units 21:21 20:49 20:30 WBC (4.50-11.00) K/uL RBC (4.30-5.90) m/uL Hgb (13.5-17.5) gm/dL Hct (37.0-53.0) % MCV (80-100) fL MCH (26-34) pg MCHC (32-36) gm/dL RDW Coeff of Sy (11.5-15.5) % Plt Count (140-440) K/uL Neut % (Auto) (42.0-72.0) % Lymph % (Auto) (20-44) % Forrest % (Auto) (0.0-11.0) % Eos % (Auto) (0.0-7.0) % Baso % (Auto) (0.0-3.0) % Neut # (Auto) (1.7-7.0) K/uL Lymph # (Auto) (0.90-2.90) K/uL Forrest # (Auto) (0.00-0.90) K/UL Eos # (Auto) (0.00-0.50) K/uL Baso # (Auto) (0.00-0.30) K/uL Abs Immat Gran (auto) (0.00-0.30) K/uL Imm/Tot Granulo (auto) % ESR (2-15) mm/hr Absolute Retic (0.03-0.08) # Percent Retic (0.5-2.0) % Immature Retic Fraction (2.3-13.4) % Retic Hgb Equivalent (29.0-35.0) pg INR (0.91-1.10) VBG pH (7.32-7.43) VBG pCO2 (40-50) mmHG VBG pO2 (25-47) mmHG VBG HCO3 (21-28) mmol/L Sodium (135-149) mmol/L Potassium (3.6-5.1) mmol/L Chloride (96-114) mmol/L Carbon Dioxide (20-32) mmol/L Anion Gap (7-15) mEq/L BUN (7-30) mg/dL Creatinine (0.5-1.5) mg/dL Estimated Creat Clear Estimated GFR ml/min Glucose (60-115) mg/dL Hemoglobin A1c (0-5.6) % Haptoglobin 527 H (30-200) mg/dL Lactate (0.5-1.9) mmol/L Calcium (8.4-10.6) mg/dL Ionized Calcium Ian (1.11-1.30) mmol/L Phosphorus (2.5-4.5) mg/dL Iron (49-181) ug/dL TIBC (261-462) ug/dL % Saturation (20-50) % Aqig-8-Jebxtwtmzec, Serum 116 L (200-360) mg/dL Ferritin (17.9-464.0) ng/mL Total Bilirubin (0.1-1.5) mg/dL Direct Bilirubin (0.0-0.5) mg/dL GGT (8-55) U/L AST (12-35) U/L ALT (4-50) U/L Alkaline Phosphatase (40-150) U/L Lactate Dehydrogenase (120-246) U/L Troponin I (0.01-0.04) ng/mL C-Reactive Protein (0.5-1.0) mg/dL NT-Pro-B Natriuret Pep pg/mL Total Protein (6.0-8.3) g/dL Albumin (3.3-5.0) g/dL Lipase (23-300) U/L PSA Screen (0.10-4.00) ng/mL Procalcitonin (<0.50) ng/mL TSH (0.270-4.20) uIU/mL Urine Color (Yellow) Urine Appearance (Clear) Urine pH (5.0-8.5) Ur Specific [place] (1.000-1.030) Urine Protein (Negative) Urine Glucose (UA) (Negative) Urine Ketones (Negative) Urine Blood (Negative) Urine Nitrite (Negative) Urine Bilirubin (Negative) Urine Urobilinogen (0.2-1.0) Ur Leukocyte Esterase (Negative) Urine RBC (0-2) Urine WBC (0-5) Ur Squamous Epith Cells (None-Few) Urine Bacteria (None) Stool Occult Blood Negative (Negative) SARS-CoV-2 (PCR) (Negative) Influenza Type A (PCR) (Negative) Influenza Type B (PCR) (Negative) RSV (PCR) (Negative) Lab Acknowledgement Test Added Blood Type A Positive Antibody Screen NEGATIVE Direct Antiglob Test NEGATIVE Crossmatch (AHG) See Detail 08/02/23 08/02/23 Range/Units 20:17 19:52 WBC 17.23 H (4.50-11.00) K/uL RBC 2.41 L (4.30-5.90) m/uL Hgb 7.1 L* (13.5-17.5) gm/dL Hct 21.1 L (37.0-53.0) % MCV 88 (80-100) fL MCH 30 (26-34) pg MCHC 34 (32-36) gm/dL RDW Coeff of Sy 11.7 (11.5-15.5) % Plt Count 332 (140-440) K/uL Neut % (Auto) 88.8 H (42.0-72.0) % Lymph % (Auto) 3.3 L (20-44) % Forrest % (Auto) 7.3 (0.0-11.0) % Eos % (Auto) 0.1 (0.0-7.0) % Baso % (Auto) 0.1 (0.0-3.0) % Neut # (Auto) 15.30 H (1.7-7.0) K/uL Lymph # (Auto) 0.60 L (0.90-2.90) K/uL Forrest # (Auto) 1.30 H (0.00-0.90) K/UL Eos # (Auto) 0.00 (0.00-0.50) K/uL Baso # (Auto) 0.00 (0.00-0.30) K/uL Abs Immat Gran (auto) 0.10 (0.00-0.30) K/uL Imm/Tot Granulo (auto) 0.4 % ESR > 140 H (2-15) mm/hr Absolute Retic 0.02 L (0.03-0.08) # Percent Retic 0.7 (0.5-2.0) % Immature Retic Fraction 7.0 (2.3-13.4) % Retic Hgb Equivalent 25.0 L (29.0-35.0) pg INR (0.91-1.10) VBG pH 7.406 (7.32-7.43) VBG pCO2 38 L (40-50) mmHG VBG pO2 30.9 (25-47) mmHG VBG HCO3 24 (21-28) mmol/L Sodium 131 L (135-149) mmol/L Potassium 4.4 (3.6-5.1) mmol/L Chloride 99 (96-114) mmol/L Carbon Dioxide 20 (20-32) mmol/L Anion Gap 12 (7-15) mEq/L BUN 51 H (7-30) mg/dL Creatinine 1.5 (0.5-1.5) mg/dL Estimated Creat Clear 34.47 Estimated GFR 45 ml/min Glucose 330 H (60-115) mg/dL Hemoglobin A1c 10.6 H (0-5.6) % Haptoglobin (30-200) mg/dL Lactate 1.8 (0.5-1.9) mmol/L Calcium 9.2 (8.4-10.6) mg/dL Ionized Calcium Ian (1.11-1.30) mmol/L Phosphorus (2.5-4.5) mg/dL Iron 30 L (49-181) ug/dL TIBC 318 (261-462) ug/dL % Saturation 10 L (20-50) % Onqb-7-Kejovrborlr, Serum (200-360) mg/dL Ferritin > 1000.0 H (17.9-464.0) ng/mL Total Bilirubin 0.7 (0.1-1.5) mg/dL Direct Bilirubin (0.0-0.5) mg/dL GGT (8-55) U/L AST 63 H (12-35) U/L ALT 100 H (4-50) U/L Alkaline Phosphatase 140 (40-150) U/L Lactate Dehydrogenase 318 H (120-246) U/L Troponin I 0.01 (0.01-0.04) ng/mL C-Reactive Protein 15.1 H (0.5-1.0) mg/dL NT-Pro-B Natriuret Pep pg/mL Total Protein 7.3 (6.0-8.3) g/dL Albumin 4.0 (3.3-5.0) g/dL Lipase (23-300) U/L PSA Screen 12.10 H (0.10-4.00) ng/mL Procalcitonin 1.19 H (<0.50) ng/mL TSH (0.270-4.20) uIU/mL Urine Color (Yellow) Urine Appearance (Clear) Urine pH (5.0-8.5) Ur Specific [place] (1.000-1.030) Urine Protein (Negative) Urine Glucose (UA) (Negative) Urine Ketones (Negative) Urine Blood (Negative) Urine Nitrite (Negative) Urine Bilirubin (Negative) Urine Urobilinogen (0.2-1.0) Ur Leukocyte Esterase (Negative) Urine RBC (0-2) Urine WBC (0-5) Ur Squamous Epith Cells (None-Few) Urine Bacteria (None) Stool Occult Blood (Negative) SARS-CoV-2 (PCR) Negative SARS-CoV-2 (Negative) Influenza Type A (PCR) Negative PCR FLU A (Negative) Influenza Type B (PCR) Negative PCR FLU B (Negative) RSV (PCR) Negative PCR RSV (Negative) Lab Acknowledgement Blood Type Antibody Screen Direct Antiglob Test Crossmatch (AHG) Impression & Recommendations Recommendations Impression & Recommendations: HPI: This is an 88 y/o male patient with PMH HTN and DM who presented to [place] ED on 08/02 with c/o 1 month of progressive weakness, confusion, anorexia and nausea then new fever. Apparently, the patient lives independently and lately has had issue with his glucose control for which he was trying to adjust his insulin dosing and was scheduled to see an automation machine operator. Pt reported persistent nausea w/o vomiting but with poor appetite. Unclear if he lost weight. He denies urinary problems, no dysuria, nocturia, or difficulty emptying bladder. In ED he was found to have a low Hg 7.1 w/o symptoms of acute bleeding and no history of GI or pulm source bleed. Blood sugar checked by EMS was 417. In ER VS were temp 100.0, BP 151/70, HR 107, O2 sat 98%. Labs c/w leukocytosis WBC 17.2K, Hg 7.1, plat count 332K, serum Cr 1.5, K 4.4, Na 131, AST 63, ALT 100, Alk phos 140, T bili normal, UA clear + protein and gluc, no nitrtes, trace leuk esterase, 2-[address] a/p showed 1.7 cm in left renal lower pole indeterminate lesions, consider MRI. 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 Severe prostatomegaly. PSA>12, high CRP and procalcitonin. Blood cultures were sent and patient was started on broad spectrum IV abx for possible prostatitis although UA was unremarkable. Initially on IV vancomycin and Levofloxacin 08/02, then on 08/03 blood cx identified as GNR so patient switched to Zosyn on 08/03, IV vanc and levaquin d/zackery. In addition, pt noted to have acute anemia and presented with a significant drop of Hg from 11.3 on Jul 06 to 7.1 this admission, stool neg for blood, EGD negative, source of bleed or reason for drop of H&H unclear? Admission blood Cx obtained 08/02 identified as sensitive Klebsiella pneumonia (R to amp intrinsic), pt switched to ceftriaxone 1 gr iv q24 on 08/05/23. ?Of note repeat blood cultures sent same day of initial blood cx 08/02 at a different time remain NGTD. Urine Cx 08/02 <50K mixed gram-positive char. Tele ID consulted on 08/05 for recommendations Re antibiotic treatment course. Labs and micro data reviewed: leukocytosis resolved WBC 9.05<17.2K, Hg 9.6>7.1, plat 256K, ESR>140, serum Cr 1.4, LA 1.0 (on 08/02), procal trended down to 0.72<1.22, CRP 7<12.9, limited RVP 08/02 negative for Flu/RSV/COVID-19. Micro Summary: 08/02 blood cx schmitz-S kleb pneumonia. 08/02 blood cx at different time NGTD Antibiotic Summary: Ceftriaxone 08/05-current Zosyn 08/03-08/05 Levaquin, IV Vancomycin received on 08/02 Antibiotic allergies/intolerances: None Patient Summary: # Kleb pneumonia bacteremia present on admission, suspect transient low grade bacteremia, possible source prostate/prostatitis given findings of severe prostatomegaly with high PSA but he mainly had systemic symptoms w/o significant complains, per primary team no tender prostate on digital rectal exam and his admission UA was negative. # Sepsis, fever and leukocytosis with elevated inflammatory markers and procalcitonin on admission, all improved in the setting of gram negative bacteremia Impression: In order to establish the microbial etiology, if available a urine Gram stain and culture should be obtained in all men suspected of having acute prostatitis. Gram stain of the urine, if positive, can be used as a guide to initial therapy, in this case the UA was negative and urine Cx <50K possible contaminant. CT a/p showed a very large prostate but no abscess. The patient seems to be clinically improving and may have presented with a transient Kleb bacteremia, repeat blood Cx sent on 08/02 positive with negative repeat ons sent the same day at a later time, no other source of bacteremia identified, therfore the patient is being treated for Kleb pneumo bacteremia 07/30 presumed prostatitis. Treatment of acute bacterial prostatitis with Abx for up to 4-6 weeks to ensure eradication of the infection. For patients who have no prostatic abscess and, with treatment, have a painless rectal examination, sterile urine, and normal inflammatory markers (erythrocyte sedimentation rate and C-reactive protein), stopping treatment at three to four weeks is reasonable, which I would recommend in this case given age of the patient and potential Abx adverse events on a long course of Abx/fluorquinolones. 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 -To switch to Levaquin 500 mg PO daily (CrCl 33.6 today) for a total of 3 weeks taking in consideration the days of IV Abx received, Abx course from 08/02 through 08/13. -Pt will need to follow up with his PCP for a follow up EKG/QTc while on Levaquin. -Further work up for pancreatic lesion seen on CT scan per primary team, plan for outpatient imaging and follow up. -Plan d/w covering Medicine Attending Thanks for the consult, tele ID will sign off, please page us with questions. Ramandeep Lundy MD Division of Infectious Disease [facility] [employer]
[2023-08-05 15:00] VITALS: BP 111/59; PULSE 80; PULSE 88; RESP 16; TEMP 36.6; O2SAT 99
[2023-08-05] MEDS: ATORVASTATIN CALCIUM 40 MG TABLET PO (18:36)
[2023-08-05] MEDS: LATANOPROST 0.005% OPHTH 1 DROP EYE-BOTH (18:36)
--- NOTE | 2023-08-05 20:17 | PC.NURSE ---
End of shift [id number] - Pt alert and oriented to self, place, situation, and time but misstated the day of the week. He acknowledged that he incorrectly interpreted the day. Continent of bowel and bladder. Tolerating RA, regular diet and fluids. Up independently in room. Pt reported feeling increased strength and increased mental clarity throughout the day. VSS, afebrile. Family at bedside. Pt appears to be resting comfortably at end of shift.
[2023-08-05 21:21] VITALS: BP 128/64; PULSE 84; RESP 16; O2SAT 96
[2023-08-05 23:56] VITALS: BP 135/68; PULSE 68; RESP 18; TEMP 37.7; O2SAT 95
[2023-08-06 01:10] VITALS: PULSE 69
--- NOTE | 2023-08-06 05:08 | PC.NURSE ---
Pt pleasant and cooperative. He has slept well overnight. VSS. He is hoping to go home today and to follow up outpt with cyber incident handler for his diabetes. He is up in the chair at this time.
[2023-08-06 05:17] VITALS: BP 125/62; PULSE 76; TEMP 36.8; O2SAT 97
[2023-08-06 06:39] LABS: Basophils Absolute Auto 0.01 K/uL (0.00-0.30); Basophils Percent Auto 0.1 % (0.0-3.0); Eosinophils Absolute Auto 0.08 K/uL (0.00-0.50); Eosinophils Percent Auto 0.8 % (0.0-7.0); Hemoglobin* 9.6 gm/dL (13.5-17.5); Immature Granulocytes Abs Auto 0.05 K/uL (0.00-0.30); Immature Granulocytes Pct Auto 0.5 %; Lymphocytes Percent Auto 7.3 % (20-44); Mean Corpuscular HGB Conc 33 gm/dL (32-36); Mean Corpuscular Hemoglobin 29 pg (26-34); Mean Corpuscular Volume 87 fL (80-100); Monocytes Percent Auto 7.6 % (0.0-11.0); Neutrophils Percent Auto 83.7 % (42.0-72.0); Platelet Count* 295 K/uL (140-440); RDW Coefficient of Variation % 12.3 % (11.5-15.5); Red Blood Count 3.33 m/uL (4.30-5.90); White Blood Count* 9.44 K/uL (4.50-11.00)
[2023-08-06 06:48] LABS: Chloride* 104 mmol/L (96-114); Potassium* 3.9 mmol/L (3.6-5.1); Sodium* 134 mmol/L (135-149)
[2023-08-06 06:51] LABS: Anion Gap 12 mEq/L (7-15); Blood Urea Nitrogen* 27 mg/dL (7-30); Calcium* 8.6 mg/dL (8.4-10.6); Carbon Dioxide* 18 mmol/L (20-32); Creatinine* 1.3 mg/dL (0.5-1.5); Est. Creatinine Clearance* 36.69; Estimated Glomerular Filt Rate 54 ml/min; Glucose* 271 mg/dL (60-115)
[2023-08-06 06:52] LABS: Slide Review Reflex No
[2023-08-06 07:00] VITALS: PULSE 84
[2023-08-06 07:49] VITALS: BP 118/65; PULSE 86; RESP 18; TEMP 36.6; O2SAT 98
[2023-08-06] MEDS: INSULIN ASPART 100 UNIT/ML SUBCUT ×2 (08:52→13:14)
[2023-08-06] MEDS: AMLODIPINE 10 MG TABLET PO (08:55)
[2023-08-06] MEDS: OMEPRAZOLE 20 MG CAPSULE DR PO (08:55)
[2023-08-06] MEDS: cefTRIAXone 1 GM in 0.9 % SODIUM CHLORIDE Mini-bag 100 ML IVPB (11:23)
--- NOTE | 2023-08-06 11:46 | P.DS_ITS ---
DS: Providers Provider Date Seen: 08/06/23 Date of admission: 08/02/23 23:31 Primary care physician: Nicolle Roach DO Admitting Clinician: Jai Dixon MD Consults: 08/02/23 23:27 Consult to Occupational Therapy [CONS] Routine Comment: Reason(s) for OT Consult:: Evaluate and Treat Any Restrictions?:: No Restrictions Consult to Physical Therapy [CONS] Routine Comment: Reason(s) for PT Consult:: Evaluate and Treat Any Restrictions?:: No Restrictions 08/05/23 10:55 Consult to Infectious Diseases [CONS] Urgent Comment: Consulting Provider: [facility] Consult priority: Urgent Has provider been notified: No Call back required?: Yes Attending Physician on discharge: Milady Hensley MD Date of Discharge: 08/06/23 DS: Diagnosis Discharge Diagnosis (1) Abnormal CT of the abdomen: Status: Acute Problem details: -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 No associated symptoms while inpatient. Recommend outpatient vs no f/u if based on care goals (2) Prostatitis: Status: Acute Problem details: severe sepsis noted but now resolved. Empirically treated with vancomycin and levofloxacin /, transitioned to zosyn from 08/03 - 08/05 (2/5 was vanc and levofloxacin) followed by Rocephin 1 g Q 24 08/05-08/06. -blood cultures growing Klebsiella -ID was consulted for televisit and recommended a total of 21 days of antibiotics for bacteremia presumed secondary to prostatitis. Avoiding longer course due to risk of fluoroquinolone and sterile urine culture following DESIREE (3) Sepsis: Status: Acute Problem details: -resolved -Admitted with sepsis with 3 SIRS criteria: HR, WBC count, RR and infection (prostatitis with gram neg bacteremia); organ dysfunction was present with BP of 100/48 (MAP 65) (4) Cognitive impairment: Status: Acute Problem details: OT recommended ongoing outpatient therapy (5) Diabetes mellitus, type II: Status: Acute Problem details: -insulin dependent (lantus 22-28 units and meal time insulin) -blood sugars were initially low, but improved and somewhat elevated on discharge -Resumed home medications and will need ongoing management with PCP (6) Failure to thrive in adult: Status: Acute (7) Iron deficiency anemia: Status: Acute Problem details: - Acute anemia. significant drop in 3-4 weeks (11.3 on 07/06/23 --> 7.1 on admission) -responded nicely to 1 unit packed cells: 9.8 --> 9.5 and remains stable -stool neg for blood -EGD negative -iron stores low (elevated BUN >40 since 07/06/23) -elevated ferritin from baseline of 534 (mild elevation) in 12/18. acute phase reactant? -mild bump on LDH but no obvious hemolysis -Etiology somewhat unclear: sepsis causing? slow GI bleed? Consider Hematology per PCP as an outpatient. (8) Leukocytosis: Status: Acute Problem details: Peaked at 17,000, resolved prior to discharge (9) Fever: Status: Acute Problem details: Suspect was due to bacteremia secondary to prostatitis. Resolved prior to discharge -Marked prostatomegaly on CT. -PSA >12 -Klebsiella pneumonia in blood culture -elevated procalcitonin and CRP DS: Summary Hospital Course Hospital Course: Patient presented to the ER with fever, leukocytosis and generalized weakness. He was found to have prostatomegaly with sepsis and was admitted for further cares. He was treated with several days of IV antibiotics and ID was consulted when blood cultures returned with Klebsiella but UC was sterile. Sepsis was ultimately felt to be secondary to prostatitis with subsequent transient bacteremia (follow up BC negative). They recommended a shorter (3 week) course of levofloxacin. He will need close PCP follow up to monitor QT while on fluoroquinolone. Problem specific summary above. Status at Discharge Overall status at discharge: patient is progressing back to baseline Time Spent with Patient Time attestation: Total time spent providing and/or coordinating discharge services: Time spent: Greater than 30 minutes Exam 2 Narrative: Exam Narrative: Well appearing with NAD. He is sitting up in bed watching television. RRR, no m/g/r CTAB, no wheeze No lateralizing neurologic deficits noted Skin is warm and dry Const: Vital Signs, click to edit/add: Vital Signs - 24 hr 08/05/23 15:00 08/05/23 15:00 08/05/23 21:21 Temperature 97.9 F Pulse Rate 88 Pulse Rate [Right Pulse Oximeter] 80 84 Respiratory Rate 16 16 Blood Pressure [Ri ght Arm] 111/59 L 128/64 Pulse Oximetry 99 96 Oxygen Delivery Me thod Room Air Room Air 08/05/23 23:56 08/06/23 01:10 08/06/23 05:17 Temperature 100 F H 98.2 F Pulse Rate 69 Pulse Rate [Right Pulse Oximeter] 68 76 Respiratory Rate 18 Blood Pressure [Ri ght Arm] 135/68 125/62 Pulse Oximetry 95 97 Oxygen Delivery Me thod Room Air Room Air 08/06/23 07:49 Temperature 98 F Pulse Rate Pulse Rate [Right Pulse Oximeter] 86 Respiratory Rate 18 Blood Pressure [Ri ght Arm] 118/65 Pulse Oximetry 98 Oxygen Delivery Ok thod Room Air DS: Data Data Completed and Pending Labs on day of discharge: Labs from last 24 hours 08/06/23 05:57 WBC 9.44 RBC 3.33 L Hgb 9.6 L Hct 29.0 L MCV 87 MCH 29 MCHC 33 RDW Coeff of Sy 12.3 Plt Count 295 Neut % (Auto) 83.7 H Lymph % (Auto) 7.3 L [place] % (Auto) 7.6 Eos % (Auto) 0.8 Baso % (Auto) 0.1 Neut # (Auto) 7.90 H Lymph # (Auto) 0.70 L [place] # (Auto) 0.70 Eos # (Auto) 0.08 Baso # (Auto) 0.01 Abs Immat Gran (auto) 0.05 Imm/Tot Granulo (auto) 0.5 Sodium 134 L Potassium 3.9 Chloride 104 Carbon Dioxide 18 L Anion Gap 12 BUN 27 Creatinine 1.3 Estimated Creat Clear 36.69 Estimated GFR 54 Glucose 271 H Calcium 8.6 Preliminary micro results at discharge 08/02/23 20:17 Blood Culture - Preliminary Blood NO GROWTH AFTER 72 HOURS Discharge Plan Discharge Disposition: Home, Self-Care Date of Admission: 08/02/23 23:31 Attending Provider on Discharge: Milady Hensley Consulting Providers: Tiffany Dietz; Ramandeep Lundy; Esme Corey; Jozef Calderón; Ady Ferro; Diana Patel; Alix Perdue Primary Care Provider: Nicolle Roach Condition: Improved Anticipated Discharge Date/Time: 08/06/23 11:36 Discharge Medications: New levofloxacin 500 mg tablet 500 mg PO DAILY Qty: 17 0RF Continued latanoprost 0.005 % drops 1 drp ophthalmic (eye) QPM amlodipine 10 mg tablet 10 mg PO DAILY atorvastatin 40 mg tablet 40 mg PO QPM (DME) lancets [BD Ultra Fine Lancets] 33 gauge misc See Rx Instructions .Route Rx Instructions: As directed (DME) blood-glucose meter [Contour Next EZ Meter] Misc See Rx Instructions .Route Rx Instructions: As directed (DME) Contour Next Test Strips Strip See Rx Instructions .Route Qty: 200 4RF Rx Instructions: 1 test BID insulin glargine [Lantus Solostar U-100 Insulin] 100 unit/mL (3 mL) insulin pen 22 - 28 unit subcut QPM Qty: 15 1RF insulin lispro [Humalog KwikPen Insulin] 100 unit/mL insulin pen 1 sliding scale dose subcut USEASDIRECTD Qty: 15 0RF Rx Instructions: Start with PM dosing. Check glucose prior to last meal. If glucose >200, give 5u. If glucose <200, give 3u. May need to increase to cover morning/afternoon meal. (DME) pen needle, diabetic [BD Ultra-Fine Mini Pen Needle] 31 gauge x 3/16 needle See Rx Instructions .ROUTE .COMPLEX Qty: 100 3RF Dose Instruction: USE 1 EACH THREE TIMES A DAY Rx Instructions: USE 1 EACH THREE TIMES A DAY Discontinued benazepril-hydrochlorothiazide 20-25 mg tablet 1 tab PO DAILY Discharge Orders: Discharge Order (Routine); Ordered 08/06/23 Ordered By: Milady Hensley Consulting provider completed their portion of the discharge: Yes Patient Education: Bacteremia (DC) Additional Instructions: Recommend outpatient PT and OT for ongoing weakness and cognitive impairment Activity Level: Activity as Tolerated Discharge Diet: Diabetic Follow Up Appointments: Nicolle Roach DO [Primary Care Provider] - (Patient needs to follow up within 1 week of discharge for EKG while on levofloxacin) Forms: DOZ Info Instructions
--- NOTE | 2023-08-06 17:02 | PC.NURSE ---
shift note: vss stable. pt afeb. Pt up indept in room. IV dc'd intact. Reviewed dc instructions with pt and family member. Copies of dc sent with pt at dc. Belongings reviewed and sent with pt at dc.
--- NOTE | 2023-08-07 13:37 | PC.NURSE ---
Pt daughter came in to retrieve patient electric razor on his behalf.
== END 2023-08-06 14:00 | disposition home or self-care (01) | DRG 872 ==
LOC: ED 23:02 → MEDSURG 23:32
PROVIDERS: Family Medicine; Admitting Provider Family Medicine; Emergency Provider Family Medicine; PCP Family Medicine; Visit Provider Family Medicine
DX: A41.59 Other Gram-negative sepsis (principal); N41.0 Acute prostatitis; D62 Acute posthemorrhagic anemia; Z68.1 Body mass index [BMI] 19.9 or less, adult; K92.2 Gastrointestinal hemorrhage, unspecified; R65.20 Severe sepsis without septic shock; R63.0 Anorexia; E11.65 Type 2 diabetes mellitus with hyperglycemia; Z79.4 Long term (current) use of insulin; I12.9 Hypertensive chronic kidney disease with stage 1 through stage 4 chronic kidney disease, or unspecified chronic kidney disease; E11.22 Type 2 diabetes mellitus with diabetic chronic kidney disease; N18.1 Chronic kidney disease, stage 1; G31.84 Mild cognitive impairment of uncertain or unknown etiology; R50.9 Fever, unspecified; N28.89 Other specified disorders of kidney and ureter; R62.7 Adult failure to thrive; K86.89 Other specified diseases of pancreas; I44.0 Atrioventricular block, first degree
CPT/HCPCS: 00731; 36415; 36430; 43239; 51798; 71045; 71260; 74177; 80048; 80053; 80069; 80076; 81001; 82270; 82330; 82728; 82803; 82962; 82977; 83010; 83036; 83540; 83550; 83605; 83615; 83690; 83880; 84145; 84443; 84466; 84484; 85025; 85045; 85610; 85651; 86140; 86850; 86880; 86900; 86901; 86922; 87040; 87086; 87186; 87631; 88305; 93005; 94761; 97112; 97116; 97161; 97165; 97530; 97535; 99100; 99285; G0103; A9270; C9113; J0696; J2543; J2704; J3370; J7030; P9016; Q9967

== ENCOUNTER 2023-09-09 08:22 | Emergency (ER) | payer MEDICARE, SELFPAY ==
[2023-09-09] VITALS (9 sets, daily range): BP systolic 138–157; BP diastolic 66–75; PULSE 72–103; RESP 12–18; TEMP 36.7–36.9; O2SAT 98–100; BMI 22.2
--- NOTE | 2023-09-09 08:45 | XR_ITS ---
Patient: HATTIE MONET Facility:?[facility] Patient ID:?[id number] Site Patient ID:?[id number]. Site :?[id number] Study:?XRay-Extremity Left 3V ELBOW-09/09/2023 10:12:38 AM Ordering Physician:?DR. CEJA Final Report: INDICATION: Syncope, trauma COMPARISON: None. TECHNIQUE: Three views left elbow FINDINGS: No fracture. Normal alignment. Joint spaces are normal. No focal bone lesions. Normal bone mineralization. No elbow joint effusion. No foreign body. IMPRESSION: Normal left elbow radiographs. Dictated by Joselyn Harris MD @ 09/09/2023 10:24:58 AM Signed by:?Joselyn Harris MD @09/09/2023 10:24:58 AM (Electronic Signature)
--- NOTE | 2023-09-09 08:45 | XR_ITS ---
Patient: HATTIE MONET Facility:?[facility] Patient ID:?[id number] Site Patient ID:?[id number]. Site :?[id number] Study:?XRay-Extremity Left 2V SHOULDER-09/09/2023 10:11:11 AM Ordering Physician:?DR. CEJA Final Report: INDICATION: Syncope, trauma COMPARISON: Same day cervical spine CT TECHNIQUE: Two views left shoulder FINDINGS: Acute nondisplaced fracture through the lateral most aspect of the acromial neck. Normal joint alignment. Mild acromioclavicular and glenohumeral arthritis. No focal bone lesions. Normal bone mineralization. Soft tissue swelling along the superolateral shoulder. No foreign body. IMPRESSION: Acute nondisplaced left acromion fracture without involvement of the acromioclavicular joint. Dictated by Joselyn Harris MD @ 09/09/2023 10:23:12 AM Signed by:?Joselyn Harris MD @09/09/2023 10:23:12 AM (Electronic Signature)
--- NOTE | 2023-09-09 08:45 | CT_ITS ---
Patient: HATTIE MONET Facility:?[facility] Patient ID:?[id number] Site Patient ID:?[id number]. Site :?[id number] Study:?CT-Head WO-09/09/2023 9:53:12 AM Ordering Physician:LANETTE Final Report: INDICATION: Fall TECHNIQUE: CT head without contrast. COMPARISON: Head CT 02/18/2020 FINDINGS: CSF spaces: Within normal limits for age. Brain parenchyma: Cerebral atrophy with mild low-density in the deep white matter. No intracranial bleed or mass effect. Skull base and calvarium: Old left zygomatic arch fracture. Status post left orbital repair. Atherosclerosis. IMPRESSION: 1. No acute calvarial fracture or intracranial bleed. 2. Cerebral atrophy with nonspecific white matter disease, likely microangiopathy. Please note that all CT scans at this facility use dose modulation, iterative reconstruction, and/or weight-based dosing when appropriate to reduce radiation dose to as low as reasonably achievable. Dictated by Gus Yates MD @ 09/09/2023 10:13:05 AM Signed by:?Gus Yates MD @09/09/2023 10:13:05 AM (Electronic Signature)
--- NOTE | 2023-09-09 08:45 | CT_ITS ---
Patient: HATTIE MONET Facility:?[facility] Patient ID:?[id number] Site Patient ID:?[id number]. Site :?[id number] Study:?CT-Spine Cervical WO-09/09/2023 9:53:20 AM Ordering Physician:LANETTE Final Report: INDICATION: Fall TECHNIQUE: CT cervical spine without contrast. COMPARISON: None FINDINGS: Vertebrae: Alignment is normal. There are no fractures or suspicious bony lesions. Discs and facet joints: Facet hypertrophy C3-4 without significant stenosis. Facet hypertrophy, disc space narrowing and posterior osteophytes at C5-6 causing mild bilateral foraminal stenosis. Facet hypertrophy C6-7 and C7-T1 without significant stenosis. Extraspinal findings: Biapical pleural parenchymal scarring. Atherosclerosis IMPRESSION: Mild degenerative changes cervical spine as detailed above without evidence of acute cervical spine fracture. Please note that all CT scans at this facility use dose modulation, iterative reconstruction, and/or weight-based dosing when appropriate to reduce radiation dose to as low as reasonably achievable. Dictated by Gus Yates MD @ 09/09/2023 10:16:14 AM Signed by:?Gsu Yates MD @09/09/2023 10:16:14 AM (Electronic Signature)
--- NOTE | 2023-09-09 08:47 | ED_ITS ---
HPI - Dizziness General Date Seen: 09/09/23 Chief Complaint: Syncope/Fainted Stated Complaint: syncope Time Seen by Provider: 09/09/23 08:23 Source: patient and EMS Mode of arrival: EMS Limitations: no limitations History of Present Illness HPI Narrative: Patient is an 88-year-old male presenting to the emergency department by ambulance after a fall. He states he was standing in front of is near her in his bathroom when he suddenly became dizzy and lost his balance falling to his left side. States by the time he was on the ground dizziness symptoms resolved but he was feeling tenderness to his left shoulder and noticed a large laceration to his left hand. He is not sure what he cut his hand on. He is not believe he hit his head or neck. He was here last month for sepsis secondary to likely prostatitis. He states since then he has been feeling well and has not had any associated weakness. Patient does stay he lives home alone at this time. States is the 1st time his phone and a while. Denies fevers, chills, chest pain, shortness of breath, abdominal pain, weakness, numbness, vision changes. States at this time all his symptoms seem to have been fully resolved. No other concerns noted at this time Related Data Home Medications Medication Instructions Recorded Confirmed blood-glucose meter (Contour Next 01/20/22 08/18/23 EZ Meter) lancets 33 gauge (BD Ultra Fine 01/20/22 08/18/23 Lancets) atorvastatin 40 mg tablet 40 mg PO QPM 07/06/23 08/18/23 latanoprost 0.005 % eye drops 1 drp ophthalmic (eye) QPM 07/06/23 08/18/23 Previous Rx's Medication Instructions Recorded blood sugar diagnostic (Contour #200 ea 02/16/23 Next Test Strips) insulin glargine 100 unit/mL (3 22 - 28 unit (0.22 - 0.28 mL) 05/17/23 mL) subcutaneous pen (Lantus subcut QPM #15 mL Solostar U-100 Insulin) pen needle, diabetic 31 gauge x #100 ea 07/14/23 3/16 (BD Ultra-Fine Mini Pen Needle) levofloxacin 500 mg tablet 500 mg PO DAILY bacteremia, 08/06/23 prostatitis #17 tabs finasteride 5 mg tablet 5 mg PO QDAY #90 tabs 08/11/23 insulin lispro 100 unit/mL 5 unit (0.05 mL) subcut 08/11/23 subcutaneous pen (Humalog KwikPen USEASDIRECTD #15 mL (U-100) Insulin) amlodipine 10 mg tablet 10 mg PO DAILY #90 tabs 08/18/23 omeprazole 20 mg capsule,delayed 20 mg PO QDAY #90 caps 09/04/23 release cephalexin 500 mg capsule 500 mg PO QID #20 caps 09/09/23 Allergies Allergy/AdvReac Type Severity Reaction Status Date / Time metformin AdvReac Mild loose Verified 08/18/23 08:35 stools Review of Systems Status of ROS: Reports: 10 or more systems reviewed and unremarkable except as noted in History and below PFSH PFS Medical History Health care directive on file ?Z78.9 - Other specified health status (ICD-10) Squamous cell carcinoma of skin (02/20/13) ?C44.92 - Squamous cell carcinoma of skin, unspecified (ICD-10) 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) ?D3A.8 - Other benign neuroendocrine tumors (ICD-10) Combined forms of age-related cataract of both eyes ?H25.813 - Combined forms of age-related cataract, bilateral (ICD-10) Surgical History History of vasectomy (02/20/13) ?Z98.52 - Vasectomy status (ICD-10) History of transurethral resection of prostate (02/20/13) ?Z98.890 - Other specified postprocedural states (ICD-10) ?Z90.79 - Acquired absence of other genital organ(s) (ICD-10) History of cholecystectomy (02/20/13) ?Z90.49 - Acquired absence of other specified parts of digestive tract (ICD- 10) History of appendectomy (02/20/13) ?Z90.49 - Acquired absence of other specified parts of digestive tract (ICD- 10) Family History Other Brain cancer Prostate cancer Social History Narrative: - [place] secondary metastatic cancer of small intestine; feb 2019. He lives alone in a town home in [place]. He lives on 1 level. He drinks 1 beer a day. He does not smoke. Daughter Alexandra is healthcare power of corporate associate attorney. Code status is DNR. What is your current living situation?: I presently have a place to live Problems where you live: no known problems Problems where you live details: na In the past 12 months, utilities in danger of being shut off: no In past 12 months, lack of transportation kept you from medical appts, meetings, work, or getting things needed for daily living: no In the past 12 mos, have been you worried that your food would run out before you had money to buy more?: never true In the past 12 mos, the food you bought just didn't last and you didn't have money to buy more?: never true Highest level of school completed/degree received: 12th grade, no diploma Smoking Status: Never smoker Do you use any of these nicotine containing products: None Second hand tobacco smoke exposure: No How often do you have a drink containing alcohol: 4 or more times a week Alcohol type: beer How many standard drinks containing alcohol do you have on a typical day: 1 or 2 How often do you have six or more drinks on one occasion: Never AUDIT-C Alcohol total score: 4 Non-prescribed substance use: denies use Caffeine: Yes How often does anyone, including family, friends and others, physically hurt you : never How often does anyone, including family, friends and others, insult or talk down to you: never How often does anyone, including family, friends and others, threaten you with harm: never How often does anyone, including family, friends and others, scream or curse at you: never Little interest or pleasure in doing things: not at all Feeling down, depressed, or hopeless: not at all service: No Exam Narrative: Exam Narrative: Const: Well-nourished, Well-developed, in mild distress Eyes: PERRL, no conjunctival injection, and symmetrical lids HENT: Atraumatic external nose and ears. Moist mucous membranes. Neck: Symmetric, trachea midline, No thyromegaly. CVS: RRR, No murmurs or gallops. Peripheral pulses 2+ and equal in all extremities RESP: Unlabored respiratory effort. Clear to auscultation bilaterally. GI: Nontender/Nondistended, No rebound or guarding. MSK:Extremities w/o deformity, Normal Active ROM, mild tenderness to anterior left shoulder, mild tenderness to left elbow Skin: Warm, Dry. Abrasion to left elbow in a 1 1/2 cm laceration to left palm Neuro: Normal Muscle tone, No focal neurological deficits. Psych: Awake, Alert, & Oriented x3. Appropriate mood and affect. Const: Vital Signs, click to edit/add: Vital Signs - 24 hr 09/09/23 08:25 09/09/23 08:45 09/09/23 08:56 Temperature 98.4 F 98.4 F Pulse Rate [Pulse Oximeter] 86 86 Pulse Rate [orthos tatic lying Right Radial] 87 Pulse Rate [orthos tatic sitting Righ t Radial] 93 Pulse Rate [orthos tatic standing Rig ht Radial] 103 H Respiratory Rate 12 16 Blood Pressure [Ri ght Upper Arm] 151/70 H 153/75 H Blood Pressure [or thostatic lying] 150/66 H Blood Pressure [or thostatic sitting] 152/71 H Blood Pressure [or thostatic standing Right Arm] 153/75 H Pulse Oximetry 100 100 Oxygen Delivery Me thod Room Air Room Air 09/09/23 09:00 09/09/23 09:36 09/09/23 10:42 Temperature 98.0 F 98.1 F Pulse Rate [Pulse Oximeter] 88 72 Pulse Rate [orthos tatic lying Right Radial] 87 Pulse Rate [orthos tatic sitting Righ t Radial] 93 Pulse Rate [orthos tatic standing Rig ht Radial] 103 H Respiratory Rate 16 16 Blood Pressure [Ri ght Upper Arm] 148/68 H 138/67 Blood Pressure [or thostatic lying] 150/66 H Blood Pressure [or thostatic sitting] 152/71 H Blood Pressure [or thostatic standing Right Arm] 153/75 H Pulse Oximetry 100 99 Oxygen Delivery Me thod Room Air Room Air 09/09/23 11:00 Temperature 98.1 F Pulse Rate [Pulse Oximeter] 84 Pulse Rate [orthos tatic lying Right Radial] Pulse Rate [orthos tatic sitting Righ t Radial] Pulse Rate [orthos tatic standing Rig ht Radial] Respiratory Rate 18 Blood Pressure [Ri ght Upper Arm] 144/70 H Blood Pressure [or thostatic lying] Blood Pressure [or thostatic sitting] Blood Pressure [or thostatic standing Right Arm] Pulse Oximetry 99 Oxygen Delivery Me thod Room Air Course Vital Signs Vital signs: Initial Vital Signs Temperature 98.4 F 09/09/23 08:25 Temperature Source Temporal Artery Scan 09/09/23 08:25 Pulse Rate 86 09/09/23 08:25 Pulse Rhythm Regular 09/09/23 08:25 Respiratory Rate 12 09/09/23 08:25 Blood Pressure 151/70 H 09/09/23 08:25 Blood Pressure Mean 97 09/09/23 08:25 Blood Pressure Position Supine 09/09/23 08:25 Pulse Oximetry 100 09/09/23 08:25 Oxygen Delivery Method Room Air 09/09/23 08:25 Vital Signs Temperature 98.4 F 09/09/23 08:25 Pulse Rate 86 09/09/23 08:25 Respiratory Rate 12 09/09/23 08:25 Blood Pressure 151/70 H 09/09/23 08:25 Pulse Oximetry 100 09/09/23 08:25 Oxygen Delivery Method Room Air 09/09/23 08:25 Temperature 98.1 F 09/09/23 11:00 Pulse Rate 84 09/09/23 11:00 Respiratory Rate 18 09/09/23 11:00 Blood Pressure 144/70 H 09/09/23 11:00 Pulse Oximetry 99 09/09/23 11:00 Oxygen Delivery Method Room Air 09/09/23 11:00 Medications Administered Medications: Discontinued Medications Generic Name Dose Route Start Last Admin Trade Name Freq PRN Reason Stop Dose Admin Lidocaine/Epinephrine/Tetracaine 3 ml 09/09/23 10:56 09/09/23 11:20 Lidocaine/Epinep/Tetracaine 3 Ml Gel..Ml. TOPICAL 09/09/23 10:57 3 ml ONCE ONE Administration MDM - Dizziness MDM Narrative Medical decision making narrative: Patient is an 88-year-old male presenting to the emergency department after an episode dizziness leading to a fall. He states he does not believe he hit his head but also cannot say exactly what he cut his hand done so as a precautionary signed I will order a CT of the head and cervical spine. Also do x-rays left shoulder and left elbow do tenderness. For we did do point of care blood sugar and was 60. States that was in the low 50s earlier today any had some sugar at that time. It appears he fell due to a hypoglycemic episode. The differential also includes orthostatic hypotension, unlikely to be ischemic or hemorrhagic stroke we will do the head CT, a also be electrolyte abnormality. Will do a CBC, CMP, urinalysis, a was has flu/RSV, troponin, magnesium, point of care glucose. I had a conversation with him and his daughter about his blood sugar control. They were under the assumption that even if it is low he is still supposed take his insulin so he did take 4 units of insulin after he saw his blood sugar was in the 50s. This is very likely that is causing his symptoms and it has since resolved. He was given something to drink and after a recheck it was 97. Imaging shows a nondisplaced acromion fracture but otherwise no concerning abnormalities as reviewed by myself and the radiologist. His blood sugar is better and he is asymptomatic. Has been able to walk around without issue. Does have a large skin tear to his left elbow. The skin is very thin this is not amendable to suturing. We will place a nonadhesive dressing over it and cover and will give them supplies to change at home. Laceration repair was done using let for anesthesia. He tolerated this procedure well. I tried to speak to Dr. Luther about his insulin regimen but random was not available. I was able to schedule the patient for a follow-up appointment tomorrow morning at 09:45. Patient is otherwise safe for discharge. Was given a sling for his acromion fracture. Him and his daughter agreeable to this plan. Considering where the laceration is and his large abrasion to his left elbow I will place him on prophylactic antibiotics. Lab Data Labs: Lab Results 09/09/23 09/09/23 09/09/23 Range/Units 08:55 09:13 09:40 WBC 9.70 (4.50-11.00) K/uL RBC 3.87 L (4.30-5.90) m/uL Hgb 10.9 L (13.5-17.5) gm/dL Hct 33.7 L (37.0-53.0) % MCV 87 (80-100) fL MCH 28 (26-34) pg MCHC 32 (32-36) gm/dL RDW Coeff of Sy 14.1 (11.5-15.5) % Plt Count 215 (140-440) K/uL Neut % (Auto) 87.3 H (42.0-72.0) % Lymph % (Auto) 5.9 L (20-44) % Callahan % (Auto) 5.9 (0.0-11.0) % Eos % (Auto) 0.6 (0.0-7.0) % Baso % (Auto) 0.1 (0.0-3.0) % Neut # (Auto) 8.50 H (1.7-7.0) K/uL Lymph # (Auto) 0.60 L (0.90-2.90) K/uL Callahan # (Auto) 0.60 (0.00-0.90) K/UL Eos # (Auto) 0.06 (0.00-0.50) K/uL Baso # (Auto) 0.01 (0.00-0.30) K/uL Abs Immat Gran (auto) 0.02 (0.00-0.30) K/uL Imm/Tot Granulo (auto) 0.2 % Sodium 141 (135-149) mmol/L Potassium 4.1 (3.6-5.1) mmol/L Chloride 107 (96-114) mmol/L Carbon Dioxide 25 (20-32) mmol/L Anion Gap 9 (7-15) mEq/L BUN 29 (7-30) mg/dL Creatinine 1.1 (0.5-1.5) mg/dL Estimated Creat Clear 47.94 Estimated GFR 65 ml/min Glucose 76 (60-115) mg/dL Calcium 9.4 (8.4-10.6) mg/dL Magnesium 1.7 (1.5-2.6) mg/dL Total Bilirubin 0.6 (0.1-1.5) mg/dL AST 36 H (12-35) U/L ALT 36 (4-50) U/L Alkaline Phosphatase 110 (40-150) U/L Troponin I < 0.01 L (0.01-0.04) ng/mL Total Protein 7.1 (6.0-8.3) g/dL Albumin 4.3 (3.3-5.0) g/dL SARS-CoV-2 (PCR) Negative SARS-CoV-2 (Negative) Influenza Type A (PCR) Negative PCR FLU A (Negative) Influenza Type B (PCR) Negative PCR FLU B (Negative) RSV (PCR) Negative PCR RSV (Negative) POC Glucose 60 (60-115) mg/dl POC Troponin I Cancelled Imaging Data CT scan head: Radiologist's impression: 1. No acute calvarial fracture or intracranial bleed. 2. 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 Please note that all CT scans at this facility use dose modulation, iterative reconstruction, and/or weight-based dosing when appropriate to reduce radiation dose to as low as reasonably achievable. Dictated by Gus Yates MD @ 09/09/2023 10:13:[address] scan cervical spine: Radiologist's impression: Mild degenerative changes cervical spine as detailed above without evidence of acute cervical spine fracture. Please note that all CT scans at this facility use dose modulation, iterative reconstruction, and/or weight-based dosing when appropriate to reduce radiation dose to as low as reasonably achievable. Dictated by Gus Yates MD @ 09/09/2023 10:16:14 AM Shoulder x-ray: Radiologist's impression: Acute nondisplaced left acromion fracture without involvement of the acromioclavicular joint. Dictated by oJselyn Harris MD @ 09/09/2023 10:23:12 AM Elbow x-ray: Radiologist's impression: Normal left elbow radiographs. Dictated by Joselyn Harris MD @ 09/09/2023 10:24:58 AM ECG Data Attestation: I personally reviewed and interpreted this ECG as follows: Prior ECG tracings: available for review Interpretation: Normal sinus rhythm with rate of 81 beats per minute, first-degree AV block, occasional premature ventricular complexes, normal axis, rest of intervals are normal, no ST or T-wave abnormalities. Appears similar to previous EKG on file Discharge Plan Discharge Clinical Impression: Hypoglycemia Acromial fracture Qualifiers: Encounter type: initial encounter Fracture type: closed Fracture alignment: nondisplaced Laterality: left Qualified Code(s): S42.125A - Nondisplaced fracture of acromial process, left shoulder, initial encounter for closed fracture Hand laceration Qualifiers: Encounter type: initial encounter Foreign body presence: without foreign body Laterality: left Qualified Code(s): S61.412A - Laceration without foreign body of left hand, initial encounter Patient Disposition: Home, Self-Care Condition: Improved Additional Instructions: Follow-up with your primary care provider in the next 7 days to have the 6 sutures removed. For next 6 months, once sutures are removed, whenever you go outside put a dab of sunscreen over the laceration site to improve scar appearance. Topical antibiotics are not necessary at this time. Patient can shower but do not submerge the laceration until sutures are removed. Take insulin as previously directed unless his blood sugars under 150. If his blood sugars under 150 hold your short-acting insulin. Follow-up with Dr. Luther tomorrow at your appointment for conversation about blood sugar control. Replace the dressings on the left elbow skin tear daily. Follow-up with Dr. Luther for this also. Follow up appointment tomorrow 09/09 at 945AM at the [facility] with Dr. Thornton. Prescriptions: New cephalexin 500 mg capsule 500 mg PO QID Qty: 20 0RF No Action finasteride 5 mg tablet 5 mg PO QDAY Qty: 90 3RF insulin lispro [Humalog KwikPen Insulin] 100 unit/mL insulin pen 5 unit subcut USEASDIRECTD Qty: 15 5RF Rx Instructions: Start with PM dosing. Check glucose prior to last meal. latanoprost 0.005 % drops 1 drp ophthalmic (eye) QPM atorvastatin 40 mg tablet 40 mg PO QPM levofloxacin 500 mg tablet 500 mg PO DAILY Qty: 17 0RF (DME) lancets [BD Ultra Fine Lancets] 33 gauge misc See Rx Instructions .Route Rx Instructions: As directed (DME) blood-glucose meter [Contour Next EZ Meter] Misc See Rx Instructions .Route Rx Instructions: As directed (DME) Contour Next Test Strips Strip See Rx Instructions .Route Qty: 200 4RF Rx Instructions: 1 test BID insulin glargine [Lantus Solostar U-100 Insulin] 100 unit/mL (3 mL) insulin pen 22 - 28 unit subcut QPM Qty: 15 1RF (DME) pen needle, diabetic [BD Ultra-Fine Mini Pen Needle] 31 gauge x 3/16 needle See Rx Instructions .ROUTE .COMPLEX Qty: 100 3RF Dose Instruction: USE 1 EACH THREE TIMES A DAY Rx Instructions: USE 1 EACH THREE TIMES A DAY amlodipine 10 mg tablet 10 mg PO DAILY Qty: 90 3RF omeprazole 20 mg capsule,delayed release(DR/EC) 20 mg PO QDAY Qty: 90 3RF Follow Up/Referrals: Oneil Thornton MD [Primary Care Provider] - Stand Alone Forms: [facility] Info Instructions Procedures Laceration Left palm: Name of person performing procedure: Daniel Jackson Site: hand (palm) Side (If applicable): left Size (cm): 1.5 Description: linear and clean Depth: simple, single layer Local Anesthetic: other anesthetic (LET) Pre-repair: wound explored, irrigated extensively and deep structures intact Skin layer closed with: nylon Size (cm): 5-0 Number of sutures: 6 Technique: simple, interrupted
[2023-09-09 09:16] LABS: Glucose, Point-of-Care* 60 mg/dl (60-115)
[2023-09-09 09:36] LABS: PCR FLU A Negative PCR FLU A (Negative); PCR FLU B Negative PCR FLU B (Negative); PCR RSV Negative PCR RSV (Negative); SARS PCR* Negative SARS-CoV-2 (Negative)
[2023-09-09 09:52] LABS: Hematocrit 33.7 % (37.0-53.0); Hemoglobin* 10.9 gm/dL (13.5-17.5); Lymphocytes Percent Auto 5.9 % (20-44); Mean Corpuscular HGB Conc 32 gm/dL (32-36); Mean Corpuscular Hemoglobin 28 pg (26-34); Mean Corpuscular Volume 87 fL (80-100); Monocytes Percent Auto 5.9 % (0.0-11.0); Neutrophils Percent Auto 87.3 % (42.0-72.0); Platelet Count* 215 K/uL (140-440); RDW Coefficient of Variation % 14.1 % (11.5-15.5); Red Blood Count 3.87 m/uL (4.30-5.90)
[2023-09-09 09:53] LABS: Basophils Absolute Auto 0.01 K/uL (0.00-0.30); Basophils Percent Auto 0.1 % (0.0-3.0); Eosinophils Absolute Auto 0.06 K/uL (0.00-0.50); Eosinophils Percent Auto 0.6 % (0.0-7.0); Immature Granulocytes Abs Auto 0.02 K/uL (0.00-0.30); Immature Granulocytes Pct Auto 0.2 %; Slide Review Reflex No
[2023-09-09 10:11] LABS: Albumin* 4.3 g/dL (3.3-5.0); Chloride* 107 mmol/L (96-114)
[2023-09-09 10:12] LABS: Potassium* 4.1 mmol/L (3.6-5.1); Sodium* 141 mmol/L (135-149)
[2023-09-09 10:14] LABS: Alkaline Phosphatase* 110 U/L (40-150); Anion Gap 9 mEq/L (7-15); Aspartate Amino Transferase* 36 U/L (12-35); Bilirubin Total* 0.6 mg/dL (0.1-1.5); Carbon Dioxide* 25 mmol/L (20-32); Creatinine* 1.1 mg/dL (0.5-1.5); Est. Creatinine Clearance* 47.94; Estimated Glomerular Filt Rate 65 ml/min; Total Protein* 7.1 g/dL (6.0-8.3)
[2023-09-09 10:15] LABS: Alanine Aminotransferase* 36 U/L (4-50); Blood Urea Nitrogen* 29 mg/dL (7-30); Calcium* 9.4 mg/dL (8.4-10.6); Glucose* 76 mg/dL (60-115); Magnesium* 1.7 mg/dL (1.5-2.6)
[2023-09-09 10:26] LABS: Troponin I* < 0.01 ng/mL (0.01-0.04)
[2023-09-09] MEDS: LIDOCAINE/EPINEP/TETRACAINE 3 ML GEL..ML. TOPICAL (11:20)
== END 2023-09-09 12:30 | disposition home or self-care (01) ==
PROVIDERS: Emergency Provider Student in an Organized Health Care Education/Training Program; PCP Family Medicine
DX: E11.649 Type 2 diabetes mellitus with hypoglycemia without coma (principal); S42.125A Nondisplaced fracture of acromial process, left shoulder, initial encounter for closed fracture; S61.412A Laceration without foreign body of left hand, initial encounter; W18.39XA Other fall on same level, initial encounter; Z79.4 Long term (current) use of insulin
CPT/HCPCS: 12001; 36415; 70450; 72125; 73030; 73080; 80053; 81001; 82947; 82962; 83735; 84484; 85025; 87631; 93005; 99283; 99284; 99285